=== PATIENT | male | born 1945 | race Caucasian/White ===

== ENCOUNTER 2023-11-15 10:59 | Outpatient (AMB) | payer MEDICARE, OTHER, SELFPAY ==
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
[2023-11-15 11:19] VITALS: BP 112/64; PULSE 79; RESP 12; O2SAT 98; BMI 31.0
== END 2023-11-15 12:01 | disposition home or self-care (01) ==
PROVIDERS: Visit Provider Internal Medicine
DX: I10 Essential (primary) hypertension (principal); E11.39 Type 2 diabetes mellitus with other diabetic ophthalmic complication; E85.4 Organ-limited amyloidosis; I43 Cardiomyopathy in diseases classified elsewhere; Z87.828 Personal history of other (healed) physical injury and trauma
CPT/HCPCS: 99215; G2211

== ENCOUNTER 2024-01-27 14:42 | Outpatient (AMB) | payer MEDICARE, OTHER, SELFPAY ==
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
[2024-01-27 14:52] VITALS: BP 116/58; PULSE 78; RESP 13; O2SAT 98; BMI 29.9
== END 2024-01-27 15:21 | disposition home or self-care (01) ==
LOC: HO.HMGFM 14:42
PROVIDERS: Visit Provider Internal Medicine
DX: M54.16 Radiculopathy, lumbar region (principal)
CPT/HCPCS: 99214

== ENCOUNTER 2024-04-11 14:32 | Outpatient (REF) | payer MEDICARE, OTHER, SELFPAY | END 2024-04-11 14:33 | disposition home or self-care (01) | LOC: CF 14:32 | DX: Z13.89 Encounter for screening for other disorder (principal) ==

== ENCOUNTER → 2024-04-25 07:38 | Outpatient (BNV) | payer MEDICARE, OTHER, SELFPAY | PROVIDERS: PCP Internal Medicine; Visit Provider Radiology Diagnostic Radiology | DX: M48.062 Spinal stenosis, lumbar region with neurogenic claudication (principal); M51.46 Schmorl's nodes, lumbar region; M99.63 Osseous and subluxation stenosis of intervertebral foramina of lumbar region; Q76.49 Other congenital malformations of spine, not associated with scoliosis; M47.897 Other spondylosis, lumbosacral region | CPT/HCPCS: 72148 ==

== ENCOUNTER 2024-04-25 07:58 | Outpatient (REF) | payer MEDICARE, OTHER, SELFPAY | END 2024-04-25 07:59 | disposition home or self-care (01) | LOC: HO.MRI 07:58 | PROVIDERS: PCP Internal Medicine; Visit Provider Internal Medicine | DX: M54.40 Lumbago with sciatica, unspecified side (principal); M54.16 Radiculopathy, lumbar region | CPT/HCPCS: 72148 ==

== ENCOUNTER 2024-05-21 08:38 | Outpatient (AMB) | payer MEDICARE, OTHER, SELFPAY ==
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
[2024-05-21 08:45] VITALS: BP 130/76; PULSE 85; O2SAT 99; BMI 30.6
== END 2024-05-21 09:33 | disposition home or self-care (01) ==
PROVIDERS: PCP Internal Medicine; Visit Provider Internal Medicine
DX: Z00.00 Encounter for general adult medical examination without abnormal findings (principal); E11.39 Type 2 diabetes mellitus with other diabetic ophthalmic complication

== ENCOUNTER → 2024-05-21 08:38 | Outpatient (BNVA) | payer MEDICARE, OTHER, SELFPAY | PROVIDERS: Visit Provider Internal Medicine | DX: Z00.00 Encounter for general adult medical examination without abnormal findings (principal); E11.39 Type 2 diabetes mellitus with other diabetic ophthalmic complication; I10 Essential (primary) hypertension; I25.10 Atherosclerotic heart disease of native coronary artery without angina pectoris; M25.50 Pain in unspecified joint; I25.2 Old myocardial infarction; Z79.84 Long term (current) use of oral hypoglycemic drugs; Z79.899 Other long term (current) drug therapy | CPT/HCPCS: 83036; 96127; 99212 ==

== ENCOUNTER 2024-10-27 16:06 | Emergency (ER) | payer MEDICARE, OTHER, SELFPAY ==
--- NOTE | ~2024-10-27 | XR_ITS ---
CLINICAL HISTORY: SOB 2 view chest x-ray Comparison: None Findings: Heart size normal. No acute fracture. Impression: The lungs are clear. This document has been electronically signed by: Armani Denny MD on 10/27/2024 17:21:01
--- NOTE | 2024-10-27 16:08 | ED.GENADULT ---
HPI - General Adult General Chief complaint: Upper Respiratory Symptoms Stated complaint: cough Time Seen by Provider: 10/27/24 17:10 Source: patient, RN notes reviewed and old records reviewed Mode of arrival: ambulatory History of Present Illness ED Provider: Sruthi Cole PA-C HPI narrative: 79-year-old male with a past medical history diabetes, Amyloidosis, HTN, presenting to the ED complaining of productive cough of white/yellow phlegm x3 weeks. Admits was seen at urgent care 3 days ago had negative x-ray was not given any prescriptions. Denies fever, chills, CP, SOB, pedal edema, recent travel, sick contacts Related Data Home Medications ?Medication ?Instructions ?Recorded ?Confirmed aspirin 81 mg tablet,delayed 81 mg PO DAILY 11/15/23 11/15/23 release atorvastatin 80 mg tablet 80 mg PO DAILY 11/15/23 11/15/23 cholecalciferol (vitamin D3) 10 10 mcg PO DAILY 11/15/23 11/15/23 mcg (400 unit) tablet clopidogrel 75 mg tablet 75 mg PO DAILY 11/15/23 11/15/23 cyanocobalamin (vitamin B-12) 1,000 mcg PO DAILY 11/15/23 11/15/23 1,000 mcg capsule diclofenac sodium 1 % topical gel 2 g topical QID 11/15/23 11/15/23 (Aleve (diclofenac)) docusate sodium 100 mg capsule 100 mg PO DAILY 11/15/23 11/15/23 empagliflozin 25 mg tablet 25 mg PO DAILY 11/15/23 11/15/23 (Jardiance) ezetimibe 10 mg tablet 10 mg PO DAILY 11/15/23 11/15/23 folic acid 1 mg tablet 1 mg PO DAILY 11/15/23 11/15/23 glipizide 5 mg tablet 5 mg PO BID 11/15/23 11/15/23 isosorbide mononitrate 60 mg 90 mg PO DAILY 11/15/23 11/15/23 tablet,extended release 24 hr metformin 1,000 mg tablet 1,000 mg PO BID 11/15/23 11/15/23 metoprolol succinate 50 mg 50 mg PO BID 11/15/23 11/15/23 tablet,extended release 24 hr ranolazine 500 mg tablet,extended 750 mg PO BID 11/15/23 11/15/23 release,12 hr spironolactone 25 mg tablet 25 mg PO DAILY 11/15/23 11/15/23 tafamidis 61 mg capsule (Vyndamax) 61 mg PO DAILY 11/15/23 11/15/23 Previous Rx's ?Medication ?Instructions ?Recorded baclofen 10 mg tablet See Rx Instructions PO .COMPLEX 03/15/24 PRN back aric 90 days #270 tabs benzonatate 100 mg capsule 100 mg PO TID PRN cough #14 caps 10/27/24 hydrocodone-homatropine 5 mg-1.5 5 ml PO Q6H PRN cough #50 mL 10/27/24 mg/5 mL (5 mL) oral solution (Hycodan) prednisone 20 mg tablet 40 mg (2 x 20 mg) PO DAILY 4 days 10/27/24 #8 tabs Allergies Allergy/AdvReac Type Severity Reaction Status Date / Time morphine AdvReac Severe Hallucinati Verified 10/27/24 16:12 ons Review of Systems Review of Systems: Yes all other systems are reviewed and are negative Constitutional: Constitutional: Reports as per [facility] Past Medical History Attestation statement: The following information was validated with the patient. Source: old records reviewed Social History Social History Housing: House Alcohol intake: never Patient Tobacco Use Status: Never used Tobacco Smoked in Last 30 Days: No e-Cigarette/Vaping Use: Never Used Second Hand Smoke Exposure: No Use of substances other than those prescribed or required for medical reasons: No Advance Directives: No Advance Directives Information Provided: Yes service: Yes Current occupational status: retired Current occupational exposures/hazards: No Cognitive needs: No Hearing needs: Yes Vision needs: Yes Physical Exam ED Vital Signs: Vital Signs - 24 hr 10/27/24 16:09 Temperature 97.5 F Pulse Rate 79 Respiratory Rate 18 Blood Pressure 128/75 Pulse Oximetry 98 Oxygen Delivery Method Room Air BMI result Body Mass Index 27.5 Const General: cooperative, healthy appearing and no acute distress Orientation/consciousness: patient oriented x3 Limitations: no limitations HENMT Head: Yes normal to inspection and Yes atraumatic Ears: hearing grossly normal bilaterally General nose exam: Normal external nose present Face and sinus: Yes normal facial exam Mouth: Normal oral and palatal mucosa present and no drooling Throat: Yes posterior oropharynx normal, Yes tonsils normal, Yes uvula midline, No peritonsillar mass, No uvula laterally displaced and No uvular edema Eyes General: appearance normal, both eyes and all related structures EOM: EOMs intact bilaterally Neck Neck: Yes normal visual inspection and Yes no meningeal signs Resp Effort & Inspection: normal respiratory effort and no respiratory distress Auscultation: clear to auscultation bilaterally, no crackles, no rales and no wheezes Cardio Rate: regular rate Heart sounds: S1 normal heart sound present and S2 normal heart sound present GI Inspection: Yes normal to inspection Palpation (GI): Soft to palpation, nontender, no guarding and not rigid Skin Rashes: no rashes Wounds: no wounds Neuro General: patient oriented x3, tone normal and no meningeal signs Cranial nerves: Yes CN's II-XII intact bilaterally Gait exam (Neuro): Normal gait present Extrem Other: 1+ bilateral LE pitting edema General: Yes normal to inspection Course Course Course Narrative: RME performed by Tia Rodriguez PA-C. Patient is a 79 year old assigned male at presenting to the emergency department with a cough. Patient states he has had a cough for weeks that is not getting better and is much more weak. Detailed physical exam and review of systems are deferred to the crisis clinician. EKG, labs, imaging, and swabs ordered. Patient placed back in the waiting room pending room availability and results. - labs reassuring. Initial troponin 28.7 > will obtain 3hr repeat - COVID/flu/ RSV negative XR chest 2V Impression: The lungs are clear. -1900-- ED care transferred to [facility] pending repeat troponin. Dispo per results 10/27/20241955 Tia Rodriguez PA-C Repeat trop negative for delta. Patient cleared for discharge. Medications Administered Discontinued Medications Generic Name Dose Route Start Last Admin Trade Name Freq PRN Reason Stop Dose Admin Albuterol Sulfate 4 puff 10/27/24 17:21 10/27/24 17:29 Albuterol Sulfate 90 Mcg 8 Gm Inhaler INHALE 10/27/24 17:22 4 puff ONCE ONE Administration Hydrocodone Bit/Homatropine Methylb 5 ml 10/27/24 17:21 10/27/24 17:29 Hydrocodone/Homat 5/1.5/5 Ml 5 Ml Syrup PO 10/27/24 17:22 5 ml ONCE ONE Administration Prednisone 40 mg 10/27/24 17:34 10/27/24 17:57 Prednisone 20 Mg Tablet PO 10/27/24 17:35 40 mg ONCE ONE Administration Medical Decision Making Medical Decision Making [facility] Narrative: 79-year-old male with a past medical history diabetes, Amyloidosis, HTN, presenting to the ED complaining of productive cough of white/yellow phlegm x3 weeks. on exam vital signs stable, NAD, nontoxic appearing, lungs CTA, 1+ bilateral LE pitting edema. Concern for viral illness vs pneumonia vs bronchitis. Lower suspicion for ACS or CHF or dissection Plan: EKG, labs, CXR, viral testing, albuterol inhaler, Hycodan cough syrup, Tessalon Perle, re-evaluate Please refer to course for remaining clinical decision making, interpretation of labs/imaging results, and discussions with consultants and/or family members. Differential Diagnosis Differential Diagnoses: The differential diagnosis associated with the presentation includes As above Admission/Observation Consideration of admission/observation: Escalation of care including admission/observation considered Lab Data [facility] Lab Attestation statement: I reviewed the patient's lab results. 10/27/24 16:28 10/27/24 16:28 Labs: Lab Results 10/27/24 10/27/24 Range/Units 16:28 19:27 WBC 7.4 (4.8-10.8) X10*3/uL RBC 4.61 (4.60-5.80) X10*6/uL Hgb 13.6 L (14.0-18.0) g/dl Hct 41.1 L (42.0-52.0) % MCV 89.2 (80.0-98.0) fL MCH 29.5 (27.0-33.0) pg MCHC 33.1 (31.0-36.0) g/dl RDW 14.3 (11.0-16.0) % Plt Count 175 (160-400) X10*3/uL MPV 9.9 (9.4-12.4) fL Immature Gran % (Auto) 0.5 H (0.0-0.4) % Neut % (Auto) 67.4 (45-73) % Lymph % (Auto) 15.4 L (20-40) % [place] % (Auto) 14.2 H (2-11) % Eos % (Auto) 2.0 (0-4) % Baso % (Auto) 0.5 (0-2) % Lymph # (Auto) 1.1 L (1.2-4.9) X10*3/uL [place] # (Auto) 1.1 (0.1-1.2) X10*3/uL Eos # (Auto) 0.2 (0.0-0.4) X10*3/uL Baso # (Auto) 0.0 (0.0-0.2) X10*3/uL Abs Immat Gran (auto) 0.04 H (0.00-0.03) X10*3/uL Absolute Neuts (auto) 5.0 (2.0-8.3) x10*3/uL Absolute Nucleated RBC 0.000 (0.0-0.012) X10*3/uL Nucleated RBC % (auto) 0.0 (0.0-0.2) /100WBC PT 10.7 L (10.9-12.4) SEC INR 0.9 (0.9-1.1) Sodium 139 (135-145) mmol/L Potassium 4.5 (3.3-5.1) mmol/L Chloride 105 (96-108) mmol/L Carbon Dioxide 22 (22-29) mmol/L Anion Gap 17 (12-20) BUN 28 H (9-16) mg/dL Creatinine 1.40 (0.5-1.4) mg/dL Estim Creat Clear Calc 42.7 Estimated GFR 49 Random Glucose 192 H (60-115) mg/dL Calcium 9.8 (8.4-10.2) mg/dL Magnesium 2.4 (1.6-2.6) mg/dL Total Bilirubin 0.7 (0.0-1.0) mg/dL AST 28 (5-37) U/L ALT 31 (0-40) U/L Alkaline Phosphatase 65 (39-117) U/L Troponin I High Sens 28.7 27.1 (<3.5-35.0) ng/L B-Natriuretic Peptide 106 H (<100) pg/mL Total Protein 6.8 (6.5-8.0) g/dL Albumin 4.3 (3.5-5.0) g/dL Influenza Type A (PCR) NEGATIVE (Negative) Influenza Type B (PCR) NEGATIVE (Negative) RSV RNA Qual (PCR) NEGATIVE (Negative) SARS-CoV-2 RNA (RT-PCR) NEGATIVE (Negative) Independent Interpretation I performed an independent interpretation of an: EKG ( my interpretation EKG sinus rhythm with first-degree AV block rate of 76. QRS 88. QTC 456. No previous to compare. No STEMI) and Plain X-Ray Radiology Impression Discussion of test interpretation with radiology: I have reviewed the radiologist's reading. Independent Historian Clinical information obtained from an independent historian. History obtained from or confirmed by: Spouse External Record Review External record reviewed: Inpatient record, Office record, Outpatient record, Prior outpatient labs, Prior outpatient radiology, Primary care record and Outside ED record Tests considered The following testing was considered but not selected: As above Prescription Management I considered prescription management with: Antibiotic and Other Chronic Conditions Patient?s care impacted by: Diabetes and Other Social Determinants Patient?s care significantly limited by Social Determinants of Health including: Other Social Determinant of Health Discharge Plan Discharge Clinical Impression: Bronchitis Instructions: Acute Bronchitis (ED) Additional Instructions: You have a virus. your blood work and chest x-ray are reassuring You tested negative for COVID, flu, RSV No antibiotics are indicated at this time Prednisone is a steroid please take as prescribed until completion. Hycodan is a cough syrup with an opiate, please only take when needed for severe cough, do not drive, drink alcohol or operate machinery while taking Tessalon Perles for cough as well, take as needed Make sure you are staying hydrated. Drink plenty of fluids. Rest Alternate Tylenol and Motrin at home as needed for body aches and fever Follow-up with your doctor. If symptoms persist or worsen return to the emergency department *If you are a child & not tolerating liquid or urinating for more than 6 hours, or fevers are uncontrolled with medications at home, return to the emergency department* Prescriptions: New prednisone 20 mg tablet 40 mg PO DAILY 4 Days Qty: 8 0RF benzonatate 100 mg capsule 100 mg PO TID PRN (Reason: cough) Qty: 14 0RF hydrocodone-homatropine [Hycodan] 5-1.5 mg/5 mL (5 mL) solution 5 ml PO Q6H PRN (Reason: cough) Qty: 50 0RF Rx Instructions: Partial Fill upon patient request. No Action baclofen 10 mg tablet See Rx Instructions PO .COMPLEX PRN (Reason: back aric) 90 Days Qty: 270 3RF Rx Instructions: Take 1 tab orally PRN; Take 1 tab oral in am and 2 tab oral before bed as needed for back pain aspirin 81 mg tablet,delayed release (DR/EC) 81 mg PO DAILY atorvastatin 80 mg tablet 80 mg PO DAILY cholecalciferol (vitamin D3) 10 mcg (400 unit) tablet 10 mcg PO DAILY clopidogrel 75 mg tablet 75 mg PO DAILY cyanocobalamin (vitamin B-12) 1,000 mcg capsule 1,000 mcg PO DAILY diclofenac sodium [Aleve (diclofenac)] 1 % gel 2 g topical QID Rx Instructions: apply to single elbow, wrist or hand; for hand includes palm/fingers/back of hand docusate sodium 100 mg capsule 100 mg PO DAILY ezetimibe 10 mg tablet 10 mg PO DAILY folic acid 1 mg tablet 1 mg PO DAILY glipizide 5 mg tablet 5 mg PO BID isosorbide mononitrate 60 mg tablet extended release 24 hr 90 mg PO DAILY Jardiance 25 mg tablet 25 mg PO DAILY metformin 1,000 mg tablet 1,000 mg PO BID metoprolol succinate 50 mg tablet extended release 24 hr 50 mg PO BID ranolazine 500 mg tablet extended release 12 hr 750 mg PO BID Vyndamax 61 mg capsule 61 mg PO DAILY spironolactone 25 mg tablet 25 mg PO DAILY Referrals: Yessenia Rodriguez MD [Primary Care Provider] - 5 days Print Language: Malawian
[2024-10-27 16:09] VITALS: BP 128/75; PULSE 79; RESP 18; TEMP 36.4; O2SAT 98; BMI 27.5
--- NOTE | 2024-10-27 16:10 | ECG_ITS ---
Test Reason : SOB Blood Pressure : */* mmHG Vent. Rate : 76 BPM Atrial Rate : 76 BPM P-R Int : 222 ms QRS Dur : 88 ms QT Int : 406 ms P-R-T Axes : 65 -36 79 degrees QTcB Int : 456 ms Sinus rhythm with 1st degree A-V block Left axis deviation Inferior infarct , age undetermined Abnormal ECG No previous ECGs available Referred By: Tia Rodriguez Electronically Signed By: NAYANA MARQUEZ MD
[2024-10-27 16:36] LABS: MANUAL DIFF FLAG NO
[2024-10-27 16:37] LABS: Basophils Percent Auto 0.5 % (0-2); Eosinophils Absolute Auto 0.2 X10*3/uL (0.0-0.4); Hematocrit 41.1 % (42.0-52.0); Hemoglobin 13.6 g/dl (14.0-18.0); Imm Gran Abs Auto 0.04 X10*3/uL (0.00-0.03); Imm Gran Pct Auto 0.5 % (0.0-0.4); Lymphocytes Absolute Auto 1.1 X10*3/uL (1.2-4.9); Lymphocytes Percent Auto 15.4 % (20-40); Mean Corpuscular HGB Conc 33.1 g/dl (31.0-36.0); Mean Corpuscular Hemoglobin 29.5 pg (27.0-33.0); Mean Corpuscular Volume 89.2 fL (80.0-98.0); Mean Platelet Volume 9.9 fL (9.4-12.4); Monocytes Absolute Auto 1.1 X10*3/uL (0.1-1.2); Monocytes Percent Auto 14.2 % (2-11); Neutrophils Percent Auto 67.4 % (45-73); Platelet Count 175 X10*3/uL (160-400); Red Blood Count 4.61 X10*6/uL (4.60-5.80); Red Cell Distribution Width 14.3 % (11.0-16.0); White Blood Count 7.4 X10*3/uL (4.8-10.8)
[2024-10-27 16:42] LABS: INTERNATIONAL NORM RATIO 0.9 (0.9-1.1); Prothrombin Time 10.7 SEC (10.9-12.4)
[2024-10-27 16:50] LABS: Alanine Aminotransferase 31 U/L (0-40); Albumin Level 4.3 g/dL (3.5-5.0); Alkaline Phosphatase 65 U/L (39-117); Anion Gap 17 (12-20); Aspartate Amino Transferase 28 U/L (5-37); Bilirubin Total 0.7 mg/dL (0.0-1.0); Blood Urea Nitrogen 28 mg/dL (9-16); Calcium 9.8 mg/dL (8.4-10.2); Carbon Dioxide 22 mmol/L (22-29); Chloride 105 mmol/L (96-108); Creatinine Clr Calc Pharmacy 42.7; Estimated Glomerular Filt Rate 49; Glucose Random 192 mg/dL (60-115); Magnesium 2.4 mg/dL (1.6-2.6); Potassium 4.5 mmol/L (3.3-5.1); Sodium 139 mmol/L (135-145); Total Protein 6.8 g/dL (6.5-8.0)
[2024-10-27 16:57] LABS: Troponin-I High Sensitivity 28.7 ng/L (<3.5-35.0)
[2024-10-27 17:12] LABS: Influenza A PCR NEGATIVE (Negative); Influenza B PCR NEGATIVE (Negative); Resp Syncy Virus RNA Qual PCR NEGATIVE (Negative); SARS COV2 PCR INHOUSE NEGATIVE (Negative)
[2024-10-27] MEDS: Albuterol Sulfate 90 MCG 8 GM INHALER 4 PUFF INHALE (17:29)
[2024-10-27] MEDS: HYDROcodone/Homat 5/1.5/5 ML 5 ML SYRUP PO (17:29)
[2024-10-27] MEDS: predniSONE 20 MG TABLET 40 MG PO (17:57)
[2024-10-27 18:35] LABS: B Type Natriuretic Peptide 106 pg/mL (<100)
[2024-10-27 19:54] LABS: Troponin-I High Sensitivity 27.1 ng/L (<3.5-35.0)
[2024-10-27 20:13] VITALS: BP 128/75; PULSE 79; RESP 18; TEMP 36.4; O2SAT 98
== END 2024-10-27 20:13 | disposition home or self-care (01) ==
PROVIDERS: Physician Assistant; Physician Assistant Medical; Emergency Provider Internal Medicine; PCP Internal Medicine
DX: J40 Bronchitis, not specified as acute or chronic (principal); R05.9 Cough, unspecified; R06.02 Shortness of breath; Z03.818 Encounter for observation for suspected exposure to other biological agents ruled out; E11.9 Type 2 diabetes mellitus without complications; I10 Essential (primary) hypertension; E85.4 Organ-limited amyloidosis; Z79.82 Long term (current) use of aspirin; Z79.02 Long term (current) use of antithrombotics/antiplatelets; Z79.899 Other long term (current) drug therapy; Z79.84 Long term (current) use of oral hypoglycemic drugs
CPT/HCPCS: 0241U; 36415; 71046; 80053; 83735; 83880; 84484; 85025; 85610; 93005; 99284; 99285

== ENCOUNTER → 2024-10-27 16:10 | Outpatient (BNV) | payer MEDICARE, OTHER, SELFPAY | PROVIDERS: Emergency Provider Internal Medicine; PCP Internal Medicine; Visit Provider Internal Medicine Cardiovascular Disease | DX: I44.0 Atrioventricular block, first degree (principal) | CPT/HCPCS: 93010 ==

== ENCOUNTER → 2024-10-27 16:10 | Outpatient (BNV) | payer MEDICARE, OTHER, SELFPAY | PROVIDERS: Emergency Provider Internal Medicine; PCP Internal Medicine; Visit Provider Radiology Diagnostic Radiology | DX: R06.02 Shortness of breath (principal) | CPT/HCPCS: 71046 ==

== ENCOUNTER 2024-11-04 14:44 | Emergency (ER) | payer MEDICARE, OTHER, SELFPAY ==
--- NOTE | ~2024-11-04 | XR_ITS ---
CLINICAL HISTORY: sob, cough Chest X-ray, 2 Views COMPARISON: CR - XR CHEST 2V - 10/27/24 16:43 EDT FINDINGS: No consolidation. No pleural effusion. No pneumothorax. No cardiomegaly. No acute fracture. Status post left shoulder arthroplasty. Chronic mid to lower thoracic compression fractures. Degenerative changes in the spine. IMPRESSION: No acute findings. Nonemergent/incidental findings above. This document has been electronically signed by: Vazquez Copeland MD on 11/04/2024 16:01:01
--- NOTE | ~2024-11-04 | CT_ITS ---
CLINICAL HISTORY: productive cough, SOB x1mo CT Chest W Contrast COMPARISON: CR - XR CHEST 2V - 11/04/24 15:15 EDT FINDINGS: No pulmonary consolidation or mass. No pleural effusion. No pneumothorax. No cardiomegaly. No pericardial effusion. No pathologically enlarged lymph nodes. No thoracic aortic aneurysm. No acute fracture. Status post left shoulder arthroplasty. Anterior cervical fusion hardware in place. Degenerative changes in the spine and right shoulder. Cholelithiasis. Elevation of the right hemidiaphragm. IMPRESSION: No acute findings. Nonemergent/incidental findings above. This document has been electronically signed by: Vazquez Copeland MD on 11/04/2024 19:40:53
--- NOTE | 2024-11-04 14:46 | ED.URI ---
HPI - URI/Sore Throat General Chief Complaint: Upper Respiratory Symptoms Stated Complaint: cough Time Seen by Provider: 11/04/24 16:34 Source: patient Mode of arrival: ambulatory Limitations: no limitations History of Present Illness ED Provider: mary jane sanchez np HPI Narrative: Patient is a 79-year-old male with past medical history of diabetes, amyloidosis, hypertension presenting to emergency department for evaluation. Over the past month he has been experiencing shortness of breath, productive cough with yellow and left anterior chest pain. Was seen in the emergency department approximately 1 week ago for similar symptoms at that time states he was diagnosed with bronchitis he was given a prescription for prednisone, Tessalon Perles as well as Hycodan without much improvement. His present at bedside feels as though his symptoms have only worsened. Denies fevers, chills, headache, dizziness, neck pain, neck stiffness, sore throat, nausea, vomiting, abdominal pain, numbness or tingling of the extremities, genitourinary symptoms. Related Data Home Medications ?Medication ?Instructions ?Recorded ?Confirmed aspirin 81 mg tablet,delayed 81 mg PO DAILY 11/15/23 11/15/23 release atorvastatin 80 mg tablet 80 mg PO DAILY 11/15/23 11/15/23 cholecalciferol (vitamin D3) 10 10 mcg PO DAILY 11/15/23 11/15/23 mcg (400 unit) tablet clopidogrel 75 mg tablet 75 mg PO DAILY 11/15/23 11/15/23 cyanocobalamin (vitamin B-12) 1,000 mcg PO DAILY 11/15/23 11/15/23 1,000 mcg capsule diclofenac sodium 1 % topical gel 2 g topical QID 11/15/23 11/15/23 (Aleve (diclofenac)) docusate sodium 100 mg capsule 100 mg PO DAILY 11/15/23 11/15/23 empagliflozin 25 mg tablet 25 mg PO DAILY 11/15/23 11/15/23 (Jardiance) ezetimibe 10 mg tablet 10 mg PO DAILY 11/15/23 11/15/23 folic acid 1 mg tablet 1 mg PO DAILY 11/15/23 11/15/23 glipizide 5 mg tablet 5 mg PO BID 11/15/23 11/15/23 isosorbide mononitrate 60 mg 90 mg PO DAILY 06/18/24 06/18/24 tablet,extended release 24 hr metformin 1,000 mg tablet 1,000 mg PO BID 11/15/23 11/15/23 metoprolol succinate 50 mg 50 mg PO BID 11/15/23 11/15/23 tablet,extended release 24 hr ranolazine 500 mg tablet,extended 750 mg PO BID 11/15/23 11/15/23 release,12 hr spironolactone 25 mg tablet 25 mg PO DAILY 11/15/23 11/15/23 tafamidis 61 mg capsule (Vyndamax) 61 mg PO DAILY 11/15/23 11/15/23 Previous Rx's ?Medication ?Instructions ?Recorded baclofen 10 mg tablet See Rx Instructions PO .COMPLEX 03/15/24 PRN back aric 90 days #270 tabs benzonatate 100 mg capsule 100 mg PO TID PRN cough #14 caps 10/27/24 hydrocodone-homatropine 5 mg-1.5 5 ml PO Q6H PRN cough #50 mL 10/27/24 mg/5 mL (5 mL) oral solution (Hycodan) prednisone 20 mg tablet 40 mg (2 x 20 mg) PO DAILY 4 days 10/27/24 #8 tabs apixaban 5 mg tablet (Eliquis) 5 mg PO BID #60 tabs 11/04/24 azithromycin 250 mg tablet See Rx Instructions PO .COMPLEX #6 11/04/24 tabs Allergies Allergy/AdvReac Type Severity Reaction Status Date / Time morphine AdvReac Severe Hallucinati Verified 11/04/24 14:51 ons Review of Systems Review of Systems: Yes all other systems are reviewed and are negative PMFSH Past Medical History Attestation statement: The following information was validated with the patient. Source: old records reviewed Social History Social History Housing: House Alcohol intake: never Patient Tobacco Use Status: Never used Tobacco Smoked in Last 30 Days: No e-Cigarette/Vaping Use: Never Used Second Hand Smoke Exposure: No Use of substances other than those prescribed or required for medical reasons: No Advance Directives: No Advance Directives Information Provided: Yes Do you have a plan to hurt others: No Plan service: Yes Current occupational status: retired Current occupational exposures/hazards: No Cognitive needs: No Hearing needs: Yes Vision needs: Yes Physical Exam Vital Signs: Vital Signs: Last Vital Signs Temp 96.8 F 11/04/24 21:19 Pulse 83 11/04/24 21:19 Resp 13 11/04/24 21:19 BP 134/68 11/04/24 21:19 Pulse Ox 98 11/04/24 21:19 O2 Del Method Room Air 11/04/24 21:19 BMI result Body Mass Index 26.7 Appearance: Alert.?Oriented to person, place and time. No acute distress.?Normal affect. Eyes: Pupils equal, round and reactive to light.? ENT: TM normal bilaterally. Pharynx normal.?? Neck: Normal inspection.? Neck supple.??No cervical adenopathy CVS: Heart sounds normal. Normal heart rate and rhythm.? Pulses normal.?? Respiratory: No respiratory distress.? Lung sounds with rhonchi bilaterally, diminished at the bases Abdomen: Soft and non-tender. Normoactive bowel sounds. Skin: Skin warm and dry.? Normal skin color.? ? Extremities: No lower extremity edema.? Neuro: Moves all extremities spontaneously. Sensation intact bilaterally. No motor deficits. Ambulates with normal steady gait. Course Course Course Narrative: This is a Rapid Medical Exam performed in triage by Sruthi Cole PA-C. Full HPI, ROS and PE to be performed by primary ED provider. 79-year-old male with a past medical history diabetes, Amyloidosis, HTN, presenting to the ED complaining of continued SOB & cough w/left sided CP - was evaluated in our ED on 10/27/24 for similar sx & dx w/Bronchits - Rx Prednisone & cough medication which he took without relief. PE: talking in complete sentences, satting 98% on RA Plan: EKG, labs, CXR, SARs Medications Administered Discontinued Medications Generic Name Dose Route Start Last Admin Trade Name Freq PRN Reason Stop Dose Admin Apixaban 5 mg 11/04/24 21:17 11/04/24 21:40 Apixaban 5 Mg Tablet PO 11/04/24 21:18 5 mg ONCE ONE Administration Sodium Chloride 1,000 mls @ 999 mls/hr 11/04/24 19:15 11/04/24 20:54 Ns IV 11/04/24 20:15 Infused .Q1H1M KAYLEIGH Infusion Iohexol 65 ml 11/04/24 19:23 11/04/24 19:24 Iohexol 350 Mg/Ml 100 Ml Infus..Btl IV 11/04/24 19:24 65 ml ONCE ONE Administration Medical Decision Making Medical Decision Making [facility] Narrative: Patient is a 79-year-old male with past medical history of diabetes, amyloidosis, hypertension presenting to emergency department for evaluation of productive cough shortness of breath and chest pain as per HPI. He was seen 10/27/2024 diagnosed with bronchitis as per HPI he was given prednisone, Hycodan, and Tessalon which by his account he did not notice any improvement from, feels as though he has only worsened. Today he had serum labs and chest x-ray in addition to ECG prior to my assumption of care; CBC is without leukocytosis, no significant anemia or thrombocytopenia. No significant electrolyte derangement. No LASHAWN. LFTs unremarkable. Initially high sensitive troponin was elevated at 45 delta trop of 46 EKG without acute ischemic changes, reveals atrial fibrillation with ventricular rate of 92, QTC 467, no ST-elevation, patient to be new onset atrial fibrillation, CHADs VASC score of 4 for which he would be a candidate for initiating anticoagulant, such a DOAC. Chest CT without acute pathology no evidence of pleural effusion consolidation pneumothorax. Concerning for a bacterial bronchitis given the duration of symptoms, he has already taken prednisone and antitussives without improvement, begin a course of azithromycin. Patient reports that he is currently taking Plavix after having a stent 2-3 years ago, I will consult with Cardiology to ascertain whether he should discontinue the Plavix or take this simultaneously with the Eliquis. Dr. Lala advises initiating Eliquis, he may remain on the Plavix until outpatient follow-up with his director foundation. Patient has been given strict return precautions. All questions answered. Differential Diagnosis Differential Diagnoses: The differential diagnosis associated with the presentation includes ( See narrative above) Admission/Observation Consideration of admission/observation: Escalation of care including admission/observation considered ( see narrative above) Lab Data MDM Lab Attestation statement: I reviewed the patient's lab results. ( see narrative above) 11/04/24 15:04 11/04/24 15:04 Labs: Lab Results 11/04/24 11/04/24 Range/Units 15:04 17:53 WBC 7.7 (4.8-10.8) X10*3/uL RBC 4.80 (4.60-5.80) X10*6/uL Hgb 13.9 L (14.0-18.0) g/dl Hct 43.5 (42.0-52.0) % MCV 90.6 (80.0-98.0) fL MCH 29.0 (27.0-33.0) pg MCHC 32.0 (31.0-36.0) g/dl RDW 14.2 (11.0-16.0) % Plt Count 197 (160-400) X10*3/uL MPV 9.9 (9.4-12.4) fL Immature Gran % (Auto) 1.2 H (0.0-0.4) % Neut % (Auto) 73.2 H (45-73) % Lymph % (Auto) 15.3 L (20-40) % [place]ell % (Auto) 8.3 (2-11) % Eos % (Auto) 1.6 (0-4) % Baso % (Auto) 0.4 (0-2) % Lymph # (Auto) 1.2 (1.2-4.9) X10*3/uL [place]ell # (Auto) 0.6 (0.1-1.2) X10*3/uL Eos # (Auto) 0.1 (0.0-0.4) X10*3/uL Baso # (Auto) 0.0 (0.0-0.2) X10*3/uL Abs Immat Gran (auto) 0.09 H (0.00-0.03) X10*3/uL Absolute Neuts (auto) 5.6 (2.0-8.3) x10*3/uL Absolute Nucleated RBC 0.000 (0.0-0.012) X10*3/uL Nucleated RBC % (auto) 0.0 (0.0-0.2) /100WBC PT 10.6 L (10.9-12.4) SEC INR 0.9 (0.9-1.1) APTT 32.2 (26.0-36.8) SEC D-Dimer High Sensitivty 154 NG/ML Sodium 140 (135-145) mmol/L Potassium 5.1 (3.3-5.1) mmol/L Chloride 107 (96-108) mmol/L Carbon Dioxide 21 L (22-29) mmol/L Anion Gap 17 (12-20) BUN 23 H (9-16) mg/dL Creatinine 1.15 (0.5-1.4) mg/dL Estim Creat Clear Calc 52.0 Estimated GFR > 60 Random Glucose 207 H (60-115) mg/dL Calcium 9.9 (8.4-10.2) mg/dL Magnesium 2.3 (1.6-2.6) mg/dL Total Bilirubin 0.7 (0.0-1.0) mg/dL Direct Bilirubin 0.3 (0.0-0.5) mg/dL AST 24 (5-37) U/L ALT 36 (0-40) U/L Alkaline Phosphatase 57 (39-117) U/L Troponin I High Sens 45.0 H D 46.0 H (<3.5-35.0) ng/L B-Natriuretic Peptide 294 H (<100) pg/mL Total Protein 6.3 L (6.5-8.0) g/dL Albumin 4.1 (3.5-5.0) g/dL Influenza Type A (PCR) NEGATIVE (Negative) Influenza Type B (PCR) NEGATIVE (Negative) RSV RNA Qual (PCR) NEGATIVE (Negative) SARS-CoV-2 RNA (RT-PCR) NEGATIVE (Negative) Independent Interpretation I performed an independent interpretation of an: Plain X-Ray (See narrative above) Radiology Impression Discussion of test interpretation with radiology: I have reviewed the radiologist's reading. Radiologist Impression: Chest X-ray, 2 Views COMPARISON: CR - XR CHEST 2V - 10/27/24 16:43 EDT FINDINGS: No consolidation. No pleural effusion. No pneumothorax. No cardiomegaly. No acute fracture. Status post left shoulder arthroplasty. Chronic mid to lower thoracic compression fractures. Degenerative changes in the spine. IMPRESSION: No acute findings. Nonemergent/incidental findings above. CT Chest W Contrast COMPARISON: CR - XR CHEST V - 11/04/24 15:15 EDT FINDINGS: No pulmonary consolidation or mass. No pleural effusion. No pneumothorax. No cardiomegaly. No pericardial effusion. No pathologically enlarged lymph nodes. No thoracic aortic aneurysm. No acute fracture. Status post left shoulder arthroplasty. Anterior cervical fusion hardware in place. Degenerative changes in the spine and right shoulder. Cholelithiasis. Elevation of the right hemidiaphragm. IMPRESSION: No acute findings. Nonemergent/incidental findings above. Prescription Management I considered prescription management with: Pain Medication ( acetaminophen/ibuprofen) Critical Care Time Critical Care Time Critical Care Time: Yes Total Critical Care Time: 35 Attestation: I personally attest to this critical care time spent taking care of the patient exclusive of all other billable procedures was approximately 35 minutes including initial evaluation of patient, ordering tests, x-ray interpretation, EKG interpretation, medical consultation with cardiology initiating anticoagulant, documentation, re-evaluation. Discharge Plan Discharge Clinical Impression: Atrial fibrillation, Bronchitis Patient Disposition: Home, Self-Care Instructions: A-fib (Atrial Fibrillation) (ED), Acute Bronchitis (ED), Blood Thinners (ED) Additional Instructions: Aeration today was found to have new onset of atrial fibrillation and abnormal heart rhythm. For this you are being started on a medication called Eliquis, this is a blood thinning medication. I have spoken with our director foundation, given your history of stent you will remains taking the Plavix as well as the Eliquis Please contact your director foundation's office first thing tomorrow morning to arrange for a follow-up visit make them aware of the new AFib. It is imperative that with any fall or head injury you seek immediate care and an emergency department while taking the Eliquis as you are increased risk for bleeding including into the brain which can be life-threatening. If you sustaining any wounds or lacerations you may find that you have a more difficult time for the bleeding to stop. Given your ongoing productive cough over the past month, I suspect that you likely have a bacterial bronchitis at this point, there is no evidence of pneumonia on your imaging. I am sending a prescription for azithromycin to your pharmacy. Please follow-up with your primary care doctor with persistent symptoms. Prescriptions: New Eliquis 5 mg tablet 5 mg PO BID Qty: 60 0RF azithromycin 250 mg tablet See Rx Instructions .ROUTE .COMPLEX Qty: 6 0RF Rx Instructions: For 250 mg dose pack: take 500 mg today (day 1), then 250 mg for 4 days (days 2-5) No Action baclofen 10 mg tablet See Rx Instructions PO .COMPLEX PRN (Reason: back aric) 90 Days Qty: 270 3RF Rx Instructions: Take 1 tab orally PRN; Take 1 tab oral in am and 2 tab oral before bed as needed for back pain prednisone 20 mg tablet 40 mg PO DAILY 4 Days Qty: 8 0RF benzonatate 100 mg capsule 100 mg PO TID PRN (Reason: cough) Qty: 14 0RF hydrocodone-homatropine [Hycodan] 5-1.5 mg/5 mL (5 mL) solution 5 ml PO Q6H PRN (Reason: cough) Qty: 50 0RF Rx Instructions: Partial Fill upon patient request. aspirin 81 mg tablet,delayed release (DR/EC) 81 mg PO DAILY atorvastatin 80 mg tablet 80 mg PO DAILY cholecalciferol (vitamin D3) 10 mcg (400 unit) tablet 10 mcg PO DAILY clopidogrel 75 mg tablet 75 mg PO DAILY cyanocobalamin (vitamin B-12) 1,000 mcg capsule 1,000 mcg PO DAILY diclofenac sodium [Aleve (diclofenac)] 1 % gel 2 g topical QID Rx Instructions: apply to single elbow, wrist or hand; for hand includes palm/fingers/back of hand docusate sodium 100 mg capsule 100 mg PO DAILY ezetimibe 10 mg tablet 10 mg PO DAILY folic acid 1 mg tablet 1 mg PO DAILY glipizide 5 mg tablet 5 mg PO BID isosorbide mononitrate 60 mg tablet extended release 24 hr 90 mg PO DAILY Jardiance 25 mg tablet 25 mg PO DAILY metformin 1,000 mg tablet 1,000 mg PO BID metoprolol succinate 50 mg tablet extended release 24 hr 50 mg PO BID ranolazine 500 mg tablet extended release 12 hr 750 mg PO BID Vyndamax 61 mg capsule 61 mg PO DAILY spironolactone 25 mg tablet 25 mg PO DAILY Referrals: Yessenia Rodriguez MD [Primary Care Provider] - Interventions: ED Discharge Assessment Last Done: 11/04/24 21:19 Discharge Date/Time: 11/04/24 21:49 Print Language: Frisian
[2024-11-04 14:48] VITALS: BP 108/81; PULSE 104; RESP 22; TEMP 36.7; O2SAT 98; BMI 26.7
--- NOTE | 2024-11-04 14:50 | ECG_ITS ---
Test Reason : CP Blood Pressure : */* mmHG Vent. Rate : 92 BPM Atrial Rate : * BPM P-R Int : * ms QRS Dur : 94 ms QT Int : 378 ms P-R-T Axes : * -33 123 degrees QTcB Int : 467 ms Atrial fibrillation Left axis deviation Inferior infarct (cited on or before 27-Oct-2024) Cannot rule out Anterior infarct , age undetermined Abnormal ECG When compared with ECG of 27-Oct-2024 16:18, Atrial fibrillation has replaced Sinus rhythm Referred By: Sruthi Cole Electronically Signed By: NAYANA MARQUEZ MD
[2024-11-04 15:18] LABS: Basophils Percent Auto 0.4 % (0-2); Eosinophils Absolute Auto 0.1 X10*3/uL (0.0-0.4); Eosinophils Percent Auto 1.6 % (0-4); Hematocrit 43.5 % (42.0-52.0); Hemoglobin 13.9 g/dl (14.0-18.0); Imm Gran Abs Auto 0.09 X10*3/uL (0.00-0.03); Imm Gran Pct Auto 1.2 % (0.0-0.4); Lymphocytes Absolute Auto 1.2 X10*3/uL (1.2-4.9); Lymphocytes Percent Auto 15.3 % (20-40); MANUAL DIFF FLAG NO; Mean Corpuscular Volume 90.6 fL (80.0-98.0); Mean Platelet Volume 9.9 fL (9.4-12.4); Monocytes Absolute Auto 0.6 X10*3/uL (0.1-1.2); Monocytes Percent Auto 8.3 % (2-11); Neutrophils Absolute Auto 5.6 x10*3/uL (2.0-8.3); Neutrophils Percent Auto 73.2 % (45-73); Platelet Count 197 X10*3/uL (160-400); Red Cell Distribution Width 14.2 % (11.0-16.0); White Blood Count 7.7 X10*3/uL (4.8-10.8)
[2024-11-04 15:42] LABS: B Type Natriuretic Peptide 294 pg/mL (<100)
[2024-11-04 15:45] LABS: Alanine Aminotransferase 36 U/L (0-40); Albumin Level 4.1 g/dL (3.5-5.0); Anion Gap 17 (12-20); Aspartate Amino Transferase 24 U/L (5-37); Bilirubin Direct 0.3 mg/dL (0.0-0.5); Bilirubin Total 0.7 mg/dL (0.0-1.0); Blood Urea Nitrogen 23 mg/dL (9-16); Calcium 9.9 mg/dL (8.4-10.2); Carbon Dioxide 21 mmol/L (22-29); Chloride 107 mmol/L (96-108); Estimated Glomerular Filt Rate > 60; Glucose Random 207 mg/dL (60-115); Magnesium 2.3 mg/dL (1.6-2.6); Potassium 5.1 mmol/L (3.3-5.1); Sodium 140 mmol/L (135-145); Total Protein 6.3 g/dL (6.5-8.0)
[2024-11-04 16:30] VITALS: BP 105/70; PULSE 90; RESP 18; TEMP 36.7; O2SAT 98
[2024-11-04 16:50] VITALS: O2SAT 98
--- NOTE | 2024-11-04 16:51 | PC.NURSE ---
Patient A&O x 3. Patient presents to ED c/o SOB. Patient was [place] [facility] [place] with [place]. Patient completed prednisone and tessalon medication regimen with no relief. Patient 98% RA 13 RR patient able to speak in clear sentences but has coughing fits at times. at the bedside. PAtient on cnc supervisor NSR. Blood collected/sent to lab by triage. VSS and up to date.
[2024-11-04 17:01] LABS: Alkaline Phosphatase 57 U/L (39-117)
[2024-11-04 17:33] LABS: Influenza A PCR NEGATIVE (Negative); Influenza B PCR NEGATIVE (Negative); Resp Syncy Virus RNA Qual PCR NEGATIVE (Negative); SARS COV2 PCR INHOUSE NEGATIVE (Negative)
[2024-11-04 18:09] LABS: D Dimer High Sensitivity 154 NG/ML
[2024-11-04 18:42] VITALS: BP 117/63; PULSE 84; RESP 15; TEMP 36.4; O2SAT 99
[2024-11-04] MEDS: iohexoL 350 MG/ML 100 ML INFUS..BTL 65 ML IV (19:24)
[2024-11-04] MEDS: 0.9 % Sodium Chloride 1,000 ML 999 ML IV (19:41)
[2024-11-04 20:08] LABS: INTERNATIONAL NORM RATIO 0.9 (0.9-1.1); Prothrombin Time 10.6 SEC (10.9-12.4)
[2024-11-04 20:11] LABS: Partial Thromboplastin Time 32.2 SEC (26.0-36.8)
[2024-11-04 21:19] VITALS: BP 134/68; PULSE 83; RESP 13; TEMP 36; O2SAT 98
[2024-11-04] MEDS: Apixaban 5 MG TABLET PO (21:40)
--- NOTE | 2024-11-04 21:49 | PC.NURSE ---
ambulated steadily out of department with with no symptoms
== END 2024-11-04 21:49 | disposition home or self-care (01) ==
PROVIDERS: Nurse Practitioner Family; Physician Assistant; Emergency Provider Emergency Medicine; PCP Internal Medicine
DX: J40 Bronchitis, not specified as acute or chronic (principal); I48.91 Unspecified atrial fibrillation; R05.9 Cough, unspecified; Z03.818 Encounter for observation for suspected exposure to other biological agents ruled out; E11.9 Type 2 diabetes mellitus without complications; I10 Essential (primary) hypertension; R06.02 Shortness of breath; Z79.82 Long term (current) use of aspirin; Z79.02 Long term (current) use of antithrombotics/antiplatelets; Z79.84 Long term (current) use of oral hypoglycemic drugs; Z79.899 Other long term (current) drug therapy
CPT/HCPCS: 0241U; 36415; 71046; 71260; 80048; 80076; 83735; 83880; 84484; 85025; 85379; 85610; 85730; 93005; 96360; 99284; 99285; Q9967

== ENCOUNTER → 2024-11-04 14:50 | Outpatient (BNV) | payer MEDICARE, OTHER, SELFPAY | PROVIDERS: PCP Internal Medicine; Visit Provider Radiology Diagnostic Radiology | DX: K80.20 Calculus of gallbladder without cholecystitis without obstruction (principal); R05.9 Cough, unspecified | CPT/HCPCS: 71046; 71260 ==

== ENCOUNTER → 2024-11-04 14:50 | Outpatient (BNV) | payer MEDICARE, OTHER, SELFPAY | PROVIDERS: Emergency Provider Emergency Medicine; PCP Internal Medicine; Visit Provider Internal Medicine Cardiovascular Disease | DX: I48.91 Unspecified atrial fibrillation (principal); I25.2 Old myocardial infarction | CPT/HCPCS: 93010 ==

== ENCOUNTER 2024-12-17 13:31 | Outpatient (AMB) | payer MEDICARE, OTHER, SELFPAY ==
--- OUTSIDE RECORDS SUMMARY | 2024-12-14 06:23 | XMS_ITS | Continuity of Care Document ---
Author Name [facility] Organization [facility] Care Team Providers Care Bench Technician Name Role Phone [facility] Unavailable Unavailable Problems Combined list of problems from Department of Defense and [facility] facilities. It does not include entries that were removed or entered in error. Problem Status Onset Date Problem Type Date of Resolution Comments Source ERECTILE DYSFUNCTION Active 08/29/19 10 Condition [facility] Acquired claw foot (SNOMED CT 06273966) Active Condition [facility] Anesthesia for Total Ankle Replacement Active Condition Jul 27, 2007 Entered By: Donna CRYSTAL Comment: 2001 [facility] Benign localized hyperplasia of prostate Active Condition [facility] Callus/Corns Active Condition [facility] Cardiac amyloidosis Active Condition [facility] Carpal Tunnel Syndrome Active Condition [facility] Chest Pain NEC (ICD-9-CM 786.59) Active Condition [facility] Chronic post-traumatic stress disorder Active Condition [facility] Chronic post-traumatic stress disorder (SNOMED CT 507633176) Active Condition [facility] Complication of internal prosthetic device (SNOMED CT 00469589) Active Condition [facility] Coronary artery disease (SNOMED CT 80296360) Active Condition [facility] DJD * (ICD-9-CM 715.90) Active Condition [facility] Dysphonia (ICD-9-CM 784.42) Active Condition [facility] Elevated Prostate Specific Antigen (PSA) (ICD-9-CM 790.93) Active Condition [facility] Exposure to potentially hazardous substance [facility] FITTING AND ADJUSTMENT OF HEARING AID Active Condition [facility] Hammer Toe (ICD-9-CM 735.4) Active Condition [facility] Hammer toe (SNOMED CT 192607517) Active Condition [facility] Hip Joint replacement Status (Prosthetic or Artificial Device) Active Condition [facility] Hip Joint replacement Status (Prosthetic or Artificial Device) (ICD-9-CM V43.64) Active Condition Dec 28, 2004 Entered By: ARIANNE ANGUIANO Comment: 1989 [facility] Hyperlipidemia Active Condition [facility] Hyperlipidemia (SNOMED CT 63378557) Active Condition [facility] Hypertensive disorder Active Condition [facility] 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 Myogenic ptosis Active Condition [facility] Neck Pain ([facility] 17160296) Active Condition [facility] Obesity * (ICD-9-CM 278.00) Active Condition [facility] Obstructive Sleep Apnea of Adult ([facility] [id number]) Active Condition [facility] Occlus, Retin Branc Vein Active Condition Jan 21, 2012 Entered By: SHARI SAUNDERS Comment: Old OS [facility] Onychomycosis (SNOMED CT 476441244) Active Condition [facility] Osteoarthritis Active Condition [place] Other Dysphagia (ICD-9-CM 787.29) Active Condition [facility] Pain in joint involving shoulder region (ICD-9-CM 719.41) Active Condition [facility] Pain in limb (ICD-9-CM 729.5) Active Condition [facility] Paresthesia * (ICD-9-CM 782.0) Active Condition [facility] Pes cavus (SNOMED CT 53893203) Active Condition [facility] Rotator cuff (capsule) sprain or strain Active Condition Jul 27, 2007 Entered By: Donna CRYSTAL Comment: right repaired 05/05 [facility] SENSORINEURAL HEARING LOSS OF COMBINED TYPES Active Condition [facility] Spinal stenosis of lumbar region Active Condition [facility] SUBJECTIVE TINNITUS Active Condition [facility] Type 2 diabetes mellitus (SNOMED CT 22411358) Active Condition [facility] Vitamin D Deficiency ([facility] 40438436) Active Condition [facility] Diagnosis: ICD-10-CM G47.33 Obstructive sleep apnea (adult) (pediatric) Active Diagnosis [facility] Diagnosis: ICD-10-CM 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 Diagnosis: ICD-10-CM Z71.9 Counseling, unspecified Active Diagnosis [facility] Diagnosis: ICD-10-CM I48.91 Unspecified atrial fibrillation Active Diagnosis 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 Diagnosis [facility] Diagnosis: ICD-10-CM 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 Active Diagnosis [facility] Diagnosis: ICD-10-CM E11.40 Type 2 diabetes mellitus with diabetic neuropathy, unsp Active [facility] Diagnosis: ICD-10-CM M54.50 Low back pain, unspecified Active Diagnosis [facility]ita [facility] Diagnosis: ICD-10-CM 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, left eye, stable Active Diagnosis [facility] Diagnosis: ICD-10-CM Z13.83 Encounter for screening for respiratory disorder NEC Active Diagnosis [facility] Edita [facility] Diagnosis: ICD-10-CM 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, left eye, with macular edema Active Diagnosis [facility] Ed[facility] Diagnosis: ICD-10-CM H53.8 Other visual disturbances Active Diagnosis [facility] Edita [facility] Diagnosis: ICD-10-CM H43.813 Vitreous degeneration, bilateral Active [facility] Diagnosis: ICD-10-CM H52.13 Myopia, bilateral [facility] Diagnosis: ICD-10-CM R26.9 Unspecified abnormalities of gait and mobility Active [facility] Medications Combined list of outpatient medications from Department of Defense and Veterans Affairs facilities.Medications provided include 1) outpatient medications from the last 15 months, and 2) patient-reported medications. Medication Details Route Status Patient Instructions Prescription Expires Prescription Number Last Dispense Date Ordering Provider Order Date Order Qty Source ACETAMINOPH EN 500MG TAB TAKE ONE TABLET BY MOUTH EVERY 4 HOURS NEEDED FOR PAIN ALSO CALLED TYLENOL. DO NOT EXCEED 3000MG PER 24 HOUR PERIOD FROM ALL SOURCES OF ACETAMIN OPHEN. ALSO CALLED TYLENOL. DO NOT EXCEED 3000MG PER 24 HOUR PERIOD FROM ALL SOURCES OF ACETAMIN OPHEN. ORAL ACTIVE 06/07/2025 [id number] 5 SABRINA GRAHAM 2024 200 [facility] Edita [facility] APIXABAN 5MG TAB TAKE ONE TABLET BY MOUTH TWICE A DAY FOR ATRIAL FIBRILLA TION ORAL ACTIVE 11/08/2025 [id number] 5 Sammy PARK 2024 180 [facility] ASPIRIN 81MG TAB,EC TAKE ONE TABLET BY MOUTH EVERY DAY TO PREVENT BLOOD CLOTS ORAL DISCONT INUED BY PROVIDE R 12/27/2024 [id number] 5 SABRINA GRAHAM 2023 120 [facility] ASPIRIN 81MG TAB,EC TAKE ONE TABLET BY MOUTH EVERY DAY TO PREVENT BLOOD CLOTS ORAL DISCONT INUED 12/25/2023 [id number] 4 SABRINA GRAHAM 2022 120 [facility] С[facility]гейJamey [facility] ATORVASTATI N [place] 80MG TAB TAKE ONE TABLET BY MOUTH EVERY DAY FOR CHOLESTE ROL ORAL ACTIVE 12/27/2024 [id number] 5 SABRINA GRAHAM 2023 90 [facility] ATORVASTATI N [place] 80MG TAB TAKE ONE TABLET BY MOUTH EVERY DAY FOR CHOLESTE ROL ORAL DISCONT INUED 12/25/2023 [id number] 4 SABRINA GRAHAM 2022 90 [facility] BACLOFEN 10MG TAB TAKE ONE TABLET BY MOUTH EVERY MORNING NEEDED AND TAKE TWO TABLETS AT BEDTIME NEEDED FOR MUSCLE SPASM OR MUSCLE PAIN NOTE TO PATIENT: THIS MEDICATI ON CAN CAUSE SLEEPINE SS. ORAL ACTIVE 04/07/2025 [id number] 5 SABRINA GRAHAM 2023 270 [facility] BACLOFEN 10MG TAB TAKE ONE TABLET BY MOUTH EVERY MORNING NEEDED AND TAKE TWO TABLETS AT BEDTIME NEEDED FOR MUSCLE SPASM OR MUSCLE PAIN NOTE TO PATIENT: THIS MEDICATI ON CAN CAUSE SLEEPINE SS. ORAL DISCONT INUED (EDIT) 03/21/2025 [id number] 4 SABRINA GRAHAM 2023 90 [facility] CHOLECALCIF LOREN 25MCG (1,000UNIT) TAB TAKE 1 TABLET (1,000 UNITS) BY MOUTH EVERY DAY FOR VITAMIN D REPLACEM ENT ORAL ACTIVE 12/11/2025 [id number] 5 YANGGEORGIA N 2024 100 [facility] CHOLECALCIF LOREN 25MCG (1,000UNIT) TAB TAKE 1 TABLET (1,000 UNITS) BY MOUTH EVERY DAY FOR VITAMIN D REPLACEM ENT ORAL DISCONT INUED 12/27/2024 [id number] 5 SABRINA GRAHAM 2023 100 [facility] Ed[facility] CLOPIDOGREL BISULFATE 75MG TAB TAKE ONE TABLET BY MOUTH EVERY DAY TO PREVENT BLOOD CLOTS ORAL ACTIVE 12/27/2024 [id number] 5 SABRINA GRAHAM 2023 90 [facility] CLOPIDOGREL BISULFATE 75MG TAB TAKE ONE TABLET BY MOUTH EVERY DAY TO PREVENT BLOOD CLOTS ORAL DISCONT INUED 12/25/2023 [id number] 4 SABRINA GRAHAM 2022 90 [facility] CYANOCOBALA MIN 1000MCG TAB TAKE ONE TABLET BY MOUTH EVERY DAY FOR VITAMIN REPLACEM ENT ORAL ACTIVE 12/27/2024 [id number] 5 SABRINA GRAHAM 2023 100 [facility] CYANOCOBALA MIN 1000MCG TAB TAKE ONE TABLET BY MOUTH EVERY DAY FOR VITAMIN REPLACEM ENT ORAL DISCONT INUED 12/25/2023 [id number] 4 SABRINA GRAHAM 2022 100 [facility] Edita [facility] DICLOFENAC NA 1% GEL,TOP APPLY 2 GRAMS (USE DOSAGE CARD) TOPICALL Y TWICE A DAY NEEDED FOR PAIN APPLY TO RIGHT KNEE TOPICA L 06/28/2024 [id number] SABRINA GRAHAM 2023 200 [facility] DOCUSATE NA 100MG CAP TAKE ONE CAPSULE BY MOUTH TWICE A DAY TO SOFTEN STOOL ORAL ACTIVE 12/27/2024 [id number] 5 SABRINA GRAHAM 2023 200 [facility] Edita [facility] DOCUSATE NA 100MG CAP TAKE ONE CAPSULE BY MOUTH TWICE A DAY TO SOFTEN STOOL ORAL DISCONT INUED 12/25/2023 [id number] 4 SABRINA GRAHAM 2022 200 [facility] EMPAGLIFLOZ IN 25MG TAB TAKE ONE TABLET BY MOUTH EVERY MORNING FOR DIABETES ORAL ACTIVE 12/11/2025 [id number] YANGGEORGIA 2024 90 [facility] EMPAGLIFLOZ IN 25MG TAB TAKE ONE TABLET BY MOUTH EVERY MORNING FOR DIABETES NOTE DOSE INCREASE . ORAL DISCONT INUED 12/11/2025 [id number] 5 YANG,[facility] N 2024 90 [facility] EMPAGLIFLOZ IN 25MG TAB TAKE ONE TABLET BY MOUTH EVERY MORNING FOR DIABETES NOTE DOSE INCREASE . ORAL DISCONT INUED 12/27/2024 [id number] 5 SABRINA GRAHAM 2023 90 [facility] EMPAGLIFLOZ IN 25MG TAB TAKE ONE TABLET BY MOUTH EVERY MORNING FOR DIABETES NOTE DOSE INCREASE . ORAL DISCONT INUED 12/25/2023 [id number] 4 SABRINA GRAHAM 2022 90 [facility] EZETIMIBE 10MG TAB TAKE ONE TABLET BY MOUTH EVERY DAY FOR LOWERING CHOLESTE ROL ORAL ACTIVE 12/27/2024 [id number] 5 SABRINA GRAHAM 2023 90 [facility] EZETIMIBE 10MG TAB TAKE ONE TABLET BY MOUTH EVERY DAY FOR LOWERING CHOLESTE ROL ORAL DISCONT INUED 12/25/2023 [id number] 4 SABRINA GRAHAM 2022 90 [facility] FOLIC ACID 1MG TAB TAKE ONE TABLET BY MOUTH EVERY DAY VITAMIN/ NUTRITIO NAL SUPPLEME NT ORAL ACTIVE 12/27/2024 [id number] 5 SABRINA GRAHAM 2023 90 [facility] FOLIC ACID 1MG TAB TAKE ONE TABLET BY MOUTH EVERY DAY VITAMIN/ NUTRITIO NAL SUPPLEME NT ORAL DISCONT INUED 12/25/2023 [id number] 4 SABRINA GRAHAM 2022 90 [facility] FUROSEMIDE 20MG TAB TAKE ONE TABLET BY MOUTH EVERY DAY NEEDED FOR INCREASE D SHORTNES S OF BREATH, SWELLING OR WEIGHT GAIN GREATER THAN 31 LBS IN 1 DAY OR GREATER THAN 51 LBS IN A WEEK ORAL ACTIVE 12/11/2025 [id number] XAVIERG REGORY 2024 90 AVILA RushingJamey Rodriguez [facility] FUROSEMIDE 20MG TAB TAKE ONE TABLET BY MOUTH EVERY DAY ORAL DISCONT INUED 03/10/2025 [id number] XAVIERG REGORY 2023 30 [facility] СергейJamey Rodriguez [facility] GLIPIZIDE 5MG TAB TAKE ONE TABLET BY MOUTH TWICE A DAY WITH BREAKFAS T AND DINNER FOR DIABETES . DOSE INCREASE ORAL ACTIVE 12/27/2024 [id number] 5 SABRINA GRAHAM 2023 180 AVILA RushingJamey Rodriguez [facility] GLIPIZIDE 5MG TAB TAKE ONE TABLET BY MOUTH TWICE A DAY WITH BREAKFAS T AND DINNER FOR DIABETES . DOSE INCREASE ORAL DISCONT INUED 12/25/2023 [id number] 4 SABRINA GRAHAM 2022 180 AVIL[facility] Rodriguez [facility] GLUCOSAMINE [OTC] MISCELLANEO US GLUCOSAM INE misc EVERY DAY ACTIVE SABRINA GRAHAM 2005 AVILATEDDY Rodriguez [facility] ISOSORBIDE MONONITRATE 30MG TAB,SA TAKE THREE TABLETS BY MOUTH EVERY DAY ORAL ACTIVE 12/27/2024 [id number] 5 SANTOSSABRINA 2023 270 AV[facility] СергейJamey Rodriguez [facility] ISOSORBIDE MONONITRATE 30MG TAB,SA TAKE THREE TABLETS BY MOUTH EVERY DAY ORAL DISCONT INUED 12/25/2023 [id number] 4 YAASABRINA RAWLS 2022 270 AVILA Rodriguez [facility] LIDOCAINE 5% PATCH APPLY 1 PATCH TO SKIN EVERY DAY (LEAVE ON 12 HOURS AND OFF 12 HOURS) FOR LOCALIZE D PAIN; MAY CUT PATCH IN HALF BEFORE REMOVING BACKING; PRESS ON SKIN FOR 15 SECONDS TO ACTIVATE THE ADHESIVE TRANSD ERMAL DISCONT INUED BY PROVIDE R 12/27/2024 [id number] 5 SANTOSSABRINA 2023 90 AVILA Rodriguez [facility] METFORMIN HCL 1000MG TAB TAKE ONE TABLET BY MOUTH TWICE A DAY WITH MEALS FOR DIABETES ORAL ACTIVE 12/27/2024 [id number] 5 SABRINA GRAHAM 2023 180 [facility]ATEDDY [facility] METFORMIN HCL 1000MG TAB TAKE ONE TABLET BY MOUTH TWICE A DAY WITH MEALS FOR DIABETES ORAL DISCONT INUED 12/25/2023 [id number] SABRINA GRAHAM 2022 180 [facility] Ed[facility] METOPROLOL TARTRATE 50MG TAB TAKE ONE-HALF TABLET BY MOUTH TWICE A DAY ORAL DISCONT INUED BY PROVIDE R 12/27/2024 [id number] 5 SABRINA GRAHAM 2023 90 [facility] PREGABALIN 50MG CAP,ORAL TAKE ONE CAPSULE BY MOUTH TWICE A DAY FOR PAIN ORAL ACTIVE 05/11/2025 [id number] 5 SABRINA GRAHAM 2024 60 [facility] PREGABALIN 50MG CAP,ORAL TAKE ONE CAPSULE BY MOUTH AT BEDTIME FOR 2 WEEKS, THEN TAKE ONE CAPSULE TWICE A DAY FOR PAIN ORAL 10/21/2024 [id number] 5 SABRINA GRAHAM 2024 46 [facility] RANOLAZINE 500MG TAB,SA TAKE ONE TABLET BY MOUTH TWICE A DAY FOR ANGINA (SWALLOW TABLET WHOLE) ORAL ACTIVE 12/27/2024 [id number] 5 SABRINA GRAHAM 2023 180 [facility] RANOLAZINE 500MG TAB,SA TAKE ONE TABLET BY MOUTH TWICE A DAY FOR ANGINA (SWALLOW TABLET WHOLE) ORAL DISCONT INUED 12/25/2023 [id number] 4 SABRINA GRAHAM 2022 180 [facility] SODIUM FLUORIDE 1.1% TOOTHPASTE BRUSH SMALL AMOUNT TO TEETH TWICE DAILY FOR TOOTH DECAY PREVENTI ON DENTAL ACTIVE 12/30/2024 [id number] RAJINDER CARRILLO 2023 51 [facility] SPIRONOLACT ONE 25MG TAB TAKE ONE TABLET BY MOUTH EVERY DAY FOR HEART FAILURE ORAL ACTIVE 01/16/2025 [id number] 5 SABRINA GRAHAM 2023 90 AVILA Rodriguez [facility] SPIRONOLACT ONE 25MG TAB TAKE ONE TABLET BY MOUTH EVERY DAY FOR HEART FAILURE ORAL DISCONT INUED 08/19/2024 [id number] SABRINA GRAHAM 2023 90 AVILA Rodriguez [facility] SPIRONOLACT ONE 25MG TAB TAKE ONE TABLET BY MOUTH EVERY DAY FOR HEART FAILURE ORAL DISCONT INUED 08/19/2024 [id number] SABRINA GRAHAM 2023 90 AVILATEDDY Rodriguez [facility] TAFAMIDIS 61MG CAP,ORAL TAKE ONE CAPSULE BY MOUTH EVERY DAY FOR THE HEART ORAL ACTIVE 12/27/2024 [id number] 5 SABRINA GRAHAM 2023 90 AVILATEDDY Rodriguez [facility] TAFAMIDIS 61MG CAP,ORAL TAKE ONE CAPSULE BY MOUTH EVERY DAY FOR THE HEART ORAL DISCONT INUED 03/15/2024 [id number] 4 Gianna CARVALHO 2022 90 AVILATEDDY Rodriguez [facility] Allergies, Adverse Reactions, Alerts Combined list of allergies from Department of Defense and Veterans Affairs facilities. It does not include entries that were removed or entered in error. Substance Category Reaction Severity Reaction type Status Date Reported Comments Source MORPHINE Propensity to adverse reactions to drug (finding) NERVOUSNESS ,AGITATION active 3 [facility] MORPHINE Propensity to adverse reactions to drug (finding) Aggressive behavior, Mood swings active 4 [facility] MORPHINE Propensity to adverse reactions to drug (finding) active 5 [facility] MORPHINE Propensity to adverse reactions to drug (finding) Anxiety active 2 [facility] PENICILLIN Propensity to adverse reactions to drug (finding) OTHER REACTION active 3 [facility] Immunizations Combined list of available immunizations from the Department of Defense and Veterans Affairs facilities. Immunization Series Date Given Administered By Site Reaction Lot Number CVX Code Drug Medical Researcher Status Comments Source INFLUENZA, HIGH-DOSE, TRIVALENT, PF 2024 KATHIE SARMIENTO RIGHT DELTO ID [id number] A 135 complet ed ADMINISTE RED AT PA, [facility] TDAP 2022 115 complet ed HISTORICA L INFORMATI ON - FROM PATIENT'S WRITTEN RECORD, [employer] INFLUENZA VACCINE, QUADRIVALENT, ADJUVANTED 2021 205 complet ed [facility] COVID-19 (MODERNA), MRNA, LNP-S, PF, 100 MCG OR 50 MCG DOSE 3 2021 207 complet ed MOD; [id number]; 2 [facility] INFLUENZA VACCINE, QUADRIVALENT, ADJUVANTED 2020 205 complet ed [facility] TD (ADULT), 5 LF TETANUS TOXOID, PRESERVATIVE FREE, ADSORBED 2020 113 complet ed [facility] ZOSTER RECOMBINANT 2 2020 187 complet ed [facility] COVID-19 (MODERNA), MRNA, LNP-S, PF, 100 MCG/0.5 ML DOSE 2 2020 207 complet ed MOD; [id number]; 1 [facility] COVID-19 (MODERNA), MRNA, LNP-S, PF, 100 MCG/0.5 ML DOSE 1 2020 207 complet ed MOD; [id number]; 1 [facility] INFLUENZA, HIGH-DOSE, QUADRIVALENT 2019 197 complet ed [facility] ZOSTER RECOMBINANT 1 2018 187 complet ed [facility] INFLUENZA, TRIVALENT, ADJUVANTED 2017 168 complet ed [facility] INFLUENZA, HIGH DOSE SEASONAL 2016 135 complet ed [facility] INFLUENZA, HIGH DOSE SEASONAL 2016 135 complet ed [facility] INFLUENZA, HIGH DOSE SEASONAL 2015 135 complet ed [facility] PNEUMOCOCCAL CONJUGATE PCV 13 2014 133 complet ed [facility] FLU,3 YRS (HISTORICAL) 2013 88 complet ed [facility] FLU,3 YRS (HISTORICAL) 2012 88 complet ed [facility] FLU,3 YRS (HISTORICAL) 2011 88 complet ed [facility] ZOSTER LIVE 2011 121 complet ed [facility] FLU,3 YRS (HISTORICAL) 2010 88 complet ed [facility] PNEUMOCOCCAL POLYSACCHARID E PPV23 2010 33 complet ed [facility] FLU,3 YRS (HISTORICAL) 2010 88 complet ed [facility] TDAP 2009 115 complet ed Per patient [facility] FLU,3 YRS (HISTORICAL) 2007 88 complet ed [facility] FLU,3 YRS (HISTORICAL) 2007 88 complet ed [facility] FLU,3 YRS (HISTORICAL) 2006 88 complet ed [facility] FLU,3 YRS (HISTORICAL) 2006 88 complet ed [facility] FLU,3 YRS (HISTORICAL) 2005 88 complet ed [facility] FLU,3 YRS (HISTORICAL) 2005 88 complet ed [facility] PNEUMOCOCCAL, UNSPECIFIED FORMULATION 2004 109 complet ed [facility] TD(ADULT) UNSPECIFIED FORMULATION 2003 139 complet ed [facility] Results Combined list of recent chemistry, hematology and other laboratory results from Department of Defense and Veterans Affairs, ranging from 15 months to all on record, depending upon the facility. Order Name Results Value Reference Range Date Interpretation Specimen Comments Source MICROALB JESUS MONTEZ URINE (AL) CREATININE [MASS/VOLU ME] IN URINE 92.5 mg/dL 06/27 Specimen Type: URINE No comment entered. Ordering Provider: DARIN GRAHAM Report Released Date/Time: Dec 27, 2023 12:42 PM Reporting Lab: [facility]EL[facility] [address] [address] Performing Lab: AVILATEDDY FELIPE [address] [address] AV[facility] FELIPE [facility] MICROALB UMIN,RAN DOM URINE (AL) PROTEIN [MASS/VOLU ME] IN URINE 9.3 mg/dL 06/27 Specimen Type: URINE No comment entered. Ordering Provider: DARIN GRAHAM Report Released Date/Time: Dec 27, 2023 12:42 PM Reporting Lab: [facility]ATED[facility] FELIPE [address] [address] Performing Lab: AVILATEDDY FELIPE [address] [id number] [address] [facility] MICROALB UMIN,RAN DOM URINE (AL) ALBUMIN/CR EATININE [MASS RATIO] IN URINE 5 mg/g 0.0 - 30.0 06/27 Specimen Type: URINE No comment entered. Ordering Provider: DARIN GRAHAM Report Released Date/Time: Dec 27, 2023 12:42 PM Reporting Lab: [facility] FELIPE [address] [address] Performing Lab: [facility]ATED[facility] FELIPE [address] [address] AV[facility]ATEDDY FELIPE [facility] MICROALB UMIN,RAN DOM URINE (AL) ALBUMIN [MASS/VOLU ME] IN URINE 0.5 mg/dL 0.0 - 1.9 06/27 Specimen Type: URINE No comment entered. Ordering Provider: DARIN GRAHAM Report Released Date/Time: Dec 27, 2023 12:42 PM Reporting Lab: [facility]IL[facility] FELIPE [address] [address] Performing Lab: [facility]ILA FELIPE [address] [address] AVILATEDDY FELIPE [facility] URINALYS IS (V2) COLOR OF URINE Yellow 06/27 Specimen Type: URINE No comment entered. Ordering Provider: DARIN GRAHAM Report Released Date/Time: Dec 27, 2023 12:42 PM Reporting Lab: [facility]ATED[facility] FELIPE [address] [address] Performing Lab: [facility]ATED[facility] FELIPE [address] [address] [facility] [facility] [place] URINALYS IS (V2) CLARITY OF URINE Clear 06/27 Specimen Type: URINE No comment entered. Ordering Provider: DARIN GRAHAM Report Released Date/Time: Dec 27, 2023 12:42 PM Reporting Lab: [facility]ILATEDDY FELIPE [address] [address] Performing Lab: AVILA S. [place]ST[place] [address] [address] [facility] Edita [facility] URINALYS IS (V2) SPECIFIC GRAVITY OF URINE BY TEST STRIP 1.021 1.016 - 1.022 06/27 Specimen Type: URINE No comment entered. Ordering Provider: DARIN GRAHAM Report Released Date/Time: Dec 27, 2023 12:42 PM Reporting Lab: [facility]ATED[facility] FELIPE [address] [address] Performing Lab: AVILA S. DESTIN[place] [address] [address] [facility] Сергей. [facility] URINALYS IS (V2) GLUCOSE [MASS/VOLU ME] IN URINE BY TEST STRIP 500 mg/dL 06/27 H Specimen Type: URINE No comment entered. Ordering Provider: DARIN GRAHAM Report Released Date/Time: Dec 27, 2023 12:42 PM Reporting Lab: [facility]ATED[facility] FELIPE [address] [address] Performing Lab: AVILATEDDY FELIPE [address] [address] AVILA S. [facility] URINALYS IS (V2) KETONES [MASS/VOLU ME] IN URINE BY TEST STRIP Negative mg/dL 06/27 Specimen Type: URINE No comment entered. Ordering Provider: DARIN GRAHAM Report Released Date/Time: Dec 27, 2023 12:42 PM Reporting Lab: AVILA S. [place] [address] [address] Performing Lab: [facility] Сергей. [place]ST[place] [address] [address] [facility] S. [facility] URINALYS IS (V2) HEMOGLOBIN [PRESENCE] IN URINE BY TEST STRIP Negative 06/27 Specimen Type: URINE No comment entered. Ordering Provider: DARIN GRAHAM Report Released Date/Time: Dec 27, 2023 12:42 PM Reporting Lab: AVILA FELIPE [address] [address] Performing Lab: AVILA FELIPE [address] [address] [facility] URINALYS IS (V2) PROTEIN [MASS/VOLU ME] IN URINE BY TEST STRIP Negative mg/dL 06/27 Specimen Type: URINE No comment entered. Ordering Provider: DARIN GRAHAM Report Released Date/Time: Dec 27, 2023 12:42 PM Reporting Lab: AVILA FELIPE [address] [address] Performing Lab: AVILATEDDY FELIPE [address] [facility] URINALYS IS (V2) PH OF URINE BY TEST STRIP 5.5 5.0 - 9.0 06/27 Specimen Type: URINE No comment entered. Ordering Provider: DARIN GRAHAM Report Released Date/Time: Dec 27, 2023 12:42 PM Reporting Lab: AVILA FELIPE [address] [address] Performing Lab: AVILATEDDY FELIPE [address] Edita [facility] URINALYS IS (V2) BILIRUBIN. TOTAL [PRESENCE] IN URINE BY TEST STRIP Negative 06/27 Specimen Type: URINE No comment entered. Ordering Provider: DARIN GRAHAM Report Released Date/Time: Dec 27, 2023 12:42 PM Reporting Lab: AVILATEDDY FELIPE [address] [address] Performing Lab: AVILATEDDY FELIPE [address] Edita [facility] URINALYS IS (V2) UROBILINOG EN [UNITS/VOL UME] IN URINE BY TEST STRIP Normalmg /dL 06/27 Specimen Type: URINE No comment entered. Ordering Provider: DARIN GRAHAM Report Released Date/Time: Dec 27, 2023 12:42 PM Reporting Lab: AVILA S. [place] [address] [address] Performing Lab: AVILA S. [place]ST[place] [address] [address] AVILA S. [place] [facility] URINALYS IS (V2) NITRITE [PRESENCE] IN URINE BY TEST STRIP Negative 06/27 Specimen Type: URINE No comment entered. Ordering Provider: DARIN GRAHAM Report Released Date/Time: Dec 27, 2023 12:42 PM Reporting Lab: AVILA S. [place] [address] [address] Performing Lab: AVILA S. [place] [address] [facility] URINALYS IS (V2) LEUKOCYTE ESTERASE [PRESENCE] IN URINE BY TEST STRIP LARGE 06/27 H Specimen Type: URINE No comment entered. Ordering Provider: DARIN GRAHAM Report Released Date/Time: Dec 27, 2023 12:42 PM Reporting Lab: AVILA Rushing. [place] [address] [address] Performing Lab: AVILA S. DESTIENE [address] [phone] [facility] URINALYS IS (V2) LEUKOCYTES [#/AREA] IN URINE SEDIMENT BY MICROSCOPY HIGH POWER FIELD 11-25/[H PF] 0 - 2 06/27 H Specimen Type: URINE No comment entered. Ordering Provider: DARIN GRAHAM Report Released Date/Time: Dec 27, 2023 12:42 PM Reporting Lab: AVILA S. [place] [address] [address] Performing Lab: AVILA S. [place] [address] [address] AVILA S. [facility] URINALYS IS (V2) ERYTHROCYT ES [#/VOLUME] IN URINE SEDIMENT BY MICROSCOPY HIGH POWER FIELD 0-2/[HPF ] 0 - 2 06/27 Specimen Type: URINE No comment entered. Ordering Provider: DARIN GRAHAM Report Released Date/Time: Dec 27, 2023 12:42 PM Reporting Lab: AVILA FELIPE [address] [address] Performing Lab: AVILA FELIPE [address] [address] [facility] [place] [facility] (V2) EPITHELIAL CELLS.SQUA MOUS [#/AREA] IN URINE SEDIMENT BY MICROSCOPY HIGH POWER FIELD 0-2/[HPF ] 0 - 5 06/27 Specimen Type: URINE No comment entered. Ordering Provider: DARIN GRAHAM Report Released Date/Time: Dec 27, 2023 12:42 PM Reporting Lab: AVILA FELIPE [address] [address] Performing Lab: AVILA FELIPE [address] [address] AVILATEDDY FELIPE [facility] URINALYS IS (V2) MUCUS [PRESENCE] IN URINE SEDIMENT BY LIGHT MICROSCOPY FEW 06/27 Specimen Type: URINE No comment entered. Ordering Provider: DARIN GRAHAM Report Released Date/Time: Dec 27, 2023 12:42 PM Reporting Lab: AVILA FELIPE [address] [address] Performing Lab: AVILA FELIPE [address] [address] AV[facility] Jamey [facility] LIPID PANEL (AL) CHOLESTERO L [MASS/VOLU ME] IN SERUM OR PLASMA 153 mg/dL 0 - 200 06/27 Specimen Type: SERUM Comment: eGFR calculated using the 2020 CKD-EPI Creatinine equation: eGFR and Chronic Kidney Disease (CKD) Stages: >90 ml/min G1 - Normal 60-89 ml/min G2 - Mild decrease in kidney function 45-59 ml/min G3A - Mild to moderate decrease in kidney function 30-44 ml/min G3B - Moderate to severe decrease in kidney function 15-29 ml/min G4 - Severe decrease in kidney function <15 ml/min G5 - Kidney failure Reference: [email or web address] Ordering Provider: DARIN GRAHAM Report Released Date/Time: Dec 27, 2023 12:42 PM Reporting Lab: AVILATEDDY FELIPE [address] [address] Performing Lab: AVILA Kohler [address] [address] [facility] LIPID PANEL (AL) CHOLESTERO L IN HDL [MASS/VOLU ME] IN SERUM OR PLASMA 41.5 mg/dL 06/27 Specimen Type: SERUM Comment: eGFR calculated using the 2020 CKD-EPI Creatinine equation: eGFR and Chronic Kidney Disease (CKD) Stages: >90 ml/min G1 - Normal 60-89 ml/min G2 - Mild decrease in kidney function 45-59 ml/min G3A - Mild to moderate decrease in kidney function 30-44 ml/min G3B - Moderate to severe decrease in kidney function 15-29 ml/min G4 - Severe decrease in kidney function <15 ml/min G5 - Kidney failure Reference: [email or web address] Ordering Provider: DARIN GRAHAM Report Released Date/Time: Dec 27, 2023 12:42 PM Reporting Lab: [place] [phone] Performing Lab: [place] [phone] [facility] LIPID PANEL (AL) CHOLESTERO L IN LDL [MASS/VOLU ME] IN SERUM OR PLASMA BY CALCULAETHAN N 83.9 mg/dL 06/27 Specimen Type: SERUM Comment: eGFR calculated using the 2020 CKD-EPI Creatinine equation: eGFR and Chronic Kidney Disease (CKD) Stages: >90 ml/min G1 - Normal 60-89 ml/min G2 - Mild decrease in kidney function 45-59 ml/min G3A - Mild to moderate decrease in kidney function 30-44 ml/min G3B - Moderate to severe decrease in kidney function 15-29 ml/min G4 - Severe decrease in kidney function <15 ml/min G5 - Kidney failure Reference: [email or web address] Ordering Provider: DARIN GRAHAM Report Released Date/Time: Dec 27, 2023 12:42 PM Reporting Lab: [address] [address] Performing Lab: [address] [address] [facility] LIPID PANEL (AL) TRIGLYCERI DE [MASS/VOLU ME] IN SERUM OR PLASMA 137 mg/dL 30 - 150 06/27 Specimen Type: SERUM Comment: eGFR calculated using the 2020 CKD-EPI Creatinine equation: eGFR and Chronic Kidney Disease (CKD) Stages: >90 ml/min G1 - Normal 60-89 ml/min G2 - Mild decrease in kidney function 45-59 ml/min G3A - Mild to moderate decrease in kidney function 30-44 ml/min G3B - Moderate to severe decrease in kidney function 15-29 ml/min G4 - Severe decrease in kidney function <15 ml/min G5 - Kidney failure Reference: [email or web address] Ordering Provider: DARIN GRAHAM Report Released Date/Time: Dec 27, 2023 12:42 PM Reporting [facility]: [facility] [address] [address] Performing Lab: [facility] [address] [phone] HEMOGLOB IN A1C (AL) HEMOGLOBIN A1C/HEMOGL OBIN.TOTAL IN BLOOD 8.2 4.4 - 6.6 06/27 H Specimen Type: BLOOD Comment: Values obtained from A1C measurement s can vary. For typical A1C assays, a reported value of 7.0 could actually be between 6.72 and 7.28 if measured by a reference method. A reported value of 9.0 could actually be between 8.73 and 9.27. Ref: [email or web address] Ordering Provider: DARIN GRAHAM Report Released Date/Time: Dec 27, 2023 12:42 PM Reporting Lab: AVILA S. [address] [address] Performing Lab: [facility] [address] [address] [facility] VIT D, 25-HYDRO XY (V2) 25-HYDROXY VITAMIN D3 [MASS/VOLU ME] IN SERUM OR PLASMA 37.4 ng/mL 21 - 50 06/27 Specimen Type: SERUM No comment entered. Ordering Provider: DARIN GRAHAM Report Released Date/Time: Dec 27, 2023 03:49 PM Reporting Lab: [facility]. [place] [address] [address] Performing Lab: AVILATEDDY FELIPE [address] [address] AVILA Edita [facility] COMPREHE NSIVE METABOLI C PANEL (V2) ALKALINE PHOSPHATAS E [ENZYMATIC ACTIVITY/V OLUME] IN SERUM OR PLASMA 57 50 - 136 06/27 Specimen Type: SERUM Comment: eGFR calculated using the 2020 CKD-EPI Creatinine equation: eGFR and Chronic Kidney Disease (CKD) Stages: >90 ml/min G1 - Normal 60-89 ml/min G2 - Mild decrease in kidney function 45-59 ml/min G3A - Mild to moderate decrease in kidney function 30-44 ml/min G3B - Moderate to severe decrease in kidney function 15-29 ml/min G4 - Severe decrease in kidney function <15 ml/min G5 - Kidney failure Reference: [email or web address] Ordering Provider: DARIN GRAHAM Report Released Date/Time: Dec 27, 2023 12:42 PM Reporting Lab: AVILA S. [address] [address] Performing Lab: AVILA S. [address] [address] [facility] COMPREHE NSIVE METABOLI C PANEL (V2) ALBUMIN [MASS/VOLU ME] IN SERUM OR PLASMA 4.0 g/dL 3.4 - 4.5 06/27 Specimen Type: SERUM Comment: eGFR calculated using the 2020 CKD-EPI Creatinine equation: eGFR and Chronic Kidney Disease (CKD) Stages: >90 ml/min G1 - Normal 60-89 ml/min G2 - Mild decrease in kidney function 45-59 ml/min G3A - Mild to moderate decrease in kidney function 30-44 ml/min G3B - Moderate to severe decrease in kidney function 15-29 ml/min G4 - Severe decrease in kidney function <15 ml/min G5 - Kidney failure Reference: [email or web address] Ordering Provider: DARIN GRAHAM Report Released Date/Time: Dec 27, 2023 12:42 PM Reporting Lab: AVILA S. [address] [address] Performing Lab: AVILA Edita [address] [address] [facility] COMPREHE NSIVE METABOLI C PANEL (V2) POTASSIUM [MOLES/VOL UME] IN SERUM OR PLASMA 4.3 meq/L 3.8 - 5.1 06/27 Specimen Type: SERUM Comment: eGFR calculated using the 2020 CKD-EPI Creatinine equation: eGFR and Chronic Kidney Disease (CKD) Stages: >90 ml/min G1 - Normal 60-89 ml/min G2 - Mild decrease in kidney function 45-59 ml/min G3A - Mild to moderate decrease in kidney function 30-44 ml/min G3B - Moderate to severe decrease in kidney function 15-29 ml/min G4 - Severe decrease in kidney function <15 ml/min G5 - Kidney failure Reference: [email or web address] Ordering Provider: DARIN GRAHAM Report Released Date/Time: Dec 27, 2023 12:42 PM Reporting Lab: [place] [phone] Performing Lab: [address] [address] [facility] COMPREHE NSIVE METABOLI C PANEL (V2) SODIUM [MOLES/VOL UME] IN BLOOD 139 meq/L 135 - 145 06/27 Specimen Type: SERUM Comment: eGFR calculated using the 2020 CKD-EPI Creatinine equation: eGFR and Chronic Kidney Disease (CKD) Stages: >90 ml/min G1 - Normal 60-89 ml/min G2 - Mild decrease in kidney function 45-59 ml/min G3A - Mild to moderate decrease in kidney function 30-44 ml/min G3B - Moderate to severe decrease in kidney function 15-29 ml/min G4 - Severe decrease in kidney function <15 ml/min G5 - Kidney failure Reference: [email or web address] Ordering Provider: DARIN GRAHAM Report Released Date/Time: Dec 27, 2023 12:42 PM Reporting Lab: [address] [address] Performing Lab: [address] [address] [facility] COMPREHE NSIVE METABOLI C PANEL (V2) ALANINE AMINOTRANS FERASE [ENZYMATIC ACTIVITY/V OLUME] IN SERUM OR PLASMA 28 10 - 55 06/27 Specimen Type: SERUM Comment: eGFR calculated using the 2020 CKD-EPI Creatinine equation: eGFR and Chronic Kidney Disease (CKD) Stages: >90 ml/min G1 - Normal 60-89 ml/min G2 - Mild decrease in kidney function 45-59 ml/min G3A - Mild to moderate decrease in kidney function 30-44 ml/min G3B - Moderate to severe decrease in kidney function 15-29 ml/min G4 - Severe decrease in kidney function <15 ml/min G5 - Kidney failure Reference: [email or web address] Ordering Provider: DARIN GRAHAM Report Released Date/Time: Dec 27, 2023 12:42 PM Reporting Lab: AVILA FELIPE [address] [address] Performing Lab: AVILA S. [address] [phone] [address] STREETJamey [facility] COMPREHE NSIVE METABOLI C PANEL (V2) UREA NITROGEN [MASS/VOLU ME] IN SERUM OR PLASMA 26 mg/dL 9 - 26 06/27 Specimen Type: SERUM Comment: eGFR calculated using the 2020 CKD-EPI Creatinine equation: eGFR and Chronic Kidney Disease (CKD) Stages: >90 ml/min G1 - Normal 60-89 ml/min G2 - Mild decrease in kidney function 45-59 ml/min G3A - Mild to moderate decrease in kidney function 30-44 ml/min G3B - Moderate to severe decrease in kidney function 15-29 ml/min G4 - Severe decrease in kidney function <15 ml/min G5 - Kidney failure Reference: [email or web address] Ordering Provider: DARIN GRAHAM Report Released Date/Time: Dec 27, 2023 12:42 PM Reporting Lab: AVILA FELIPE [address] [address] Performing Lab: AVILA S. [address] [address] [facility] COMPREHE NSIVE METABOLI C PANEL (V2) CHLORIDE [MOLES/VOL UME] IN SERUM OR PLASMA 103 meq/L 97 - 109 06/27 Specimen Type: SERUM Comment: eGFR calculated using the 2020 CKD-EPI Creatinine equation: eGFR and Chronic Kidney Disease (CKD) Stages: >90 ml/min G1 - Normal 60-89 ml/min G2 - Mild decrease in kidney function 45-59 ml/min G3A - Mild to moderate decrease in kidney function 30-44 ml/min G3B - Moderate to severe decrease in kidney function 15-29 ml/min G4 - Severe decrease in kidney function <15 ml/min G5 - Kidney failure Reference: [email or web address] Ordering Provider: DARIN GRAHAM Report Released Date/Time: Dec 27, 2023 12:42 PM Reporting Lab: AVILA RushingJamey FELIPE [address] [address] Performing Lab: AVILA СергейJamey FELIPE [address] [address] AVILA СергейJamey FELIPE [facility] COMPREHE NSIVE METABOLI C PANEL (V2) CARBON DIOXIDE, TOTAL [MOLES/VOL UME] IN SERUM OR PLASMA 26 meq/L - 06/27 Specimen Type: SERUM Comment: eGFR calculated using the 2020 CKD-EPI Creatinine equation: eGFR and Chronic Kidney Disease (CKD) Stages: >90 ml/min G1 - Normal 60-89 ml/min G2 - Mild decrease in kidney function 45-59 ml/min G3A - Mild to moderate decrease in kidney function 30-44 ml/min G3B - Moderate to severe decrease in kidney function 15-29 ml/min G4 - Severe decrease in kidney function <15 ml/min G5 - Kidney failure Reference: [email or web address] Ordering Provider: DARIN GRAHAM Report Released Date/Time: Dec 27, 2023 12:42 PM Reporting Lab: AVILA RushingJamey CARDENASDESTINEE [address] [address] Performing Lab: AVILA SJamey [place] [address] [address] AVILA СергейJamey [facility] COMPREHE NSIVE METABOLI C PANEL (V2) ASPARTATE AMINOTRANS FERASE [ENZYMATIC ACTIVITY/V OLUME] IN SERUM OR PLASMA 17 6 - 32 06/27 Specimen Type: SERUM Comment: eGFR calculated using the 2020 CKD-EPI Creatinine equation: eGFR and Chronic Kidney Disease (CKD) Stages: >90 ml/min G1 - Normal 60-89 ml/min G2 - Mild decrease in kidney function 45-59 ml/min G3A - Mild to moderate decrease in kidney function 30-44 ml/min G3B - Moderate to severe decrease in kidney function 15-29 ml/min G4 - Severe decrease in kidney function <15 ml/min G5 - Kidney failure Reference: [email or web address] Ordering Provider: DARIN GRAHAM Report Released Date/Time: Dec 27, 2023 12:42 PM Reporting Lab: AVILATEDDY FELIPE [address] [address] Performing Lab: AVILA S. [address] [address] [facility] COMPREHE NSIVE METABOLI C PANEL (V2) CALCIUM [MASS/VOLU ME] IN SERUM OR PLASMA 10.4 mg/dL 8.3 - 10.6 06/27 Specimen Type: SERUM Comment: eGFR calculated using the 2020 CKD-EPI Creatinine equation: eGFR and Chronic Kidney Disease (CKD) Stages: >90 ml/min G1 - Normal 60-89 ml/min G2 - Mild decrease in kidney function 45-59 ml/min G3A - Mild to moderate decrease in kidney function 30-44 ml/min G3B - Moderate to severe decrease in kidney function 15-29 ml/min G4 - Severe decrease in kidney function <15 ml/min G5 - Kidney failure Reference: [email or web address] Ordering Provider: DARIN GRAHAM Report Released Date/Time: Dec 27, 2023 12:42 PM Reporting Lab: AVILA TRAORE[address] [address] Performing Lab: AVILA S. [address] [address] [facility] COMPREHE NSIVE METABOLI C PANEL (V2) PROTEIN [MASS/VOLU ME] IN SERUM OR PLASMA 6.6 g/dL 6.3 - 8.0 06/27 Specimen Type: SERUM Comment: eGFR calculated using the 2020 CKD-EPI Creatinine equation: eGFR and Chronic Kidney Disease (CKD) Stages: >90 ml/min G1 - Normal 60-89 ml/min G2 - Mild decrease in kidney function 45-59 ml/min G3A - Mild to moderate decrease in kidney function 30-44 ml/min G3B - Moderate to severe decrease in kidney function 15-29 ml/min G4 - Severe decrease in kidney function <15 ml/min G5 - Kidney failure Reference: [email or web address] Ordering Provider: DARIN GRAHAM Report Released Date/Time: Dec 27, 2023 12:42 PM Reporting Lab: AVILA FELIPE [address] [address] Performing Lab: AVILA FELIPE [address] [address] AVILATEDDY FELIPE [facility] COMPREHE NSIVE METABOLI C PANEL (V2) GLUCOSE [MASS/VOLU ME] IN SERUM OR PLASMA 176 mg/dL 70 - 140 06/27 H Specimen Type: SERUM Comment: eGFR calculated using the 2020 CKD-EPI Creatinine equation: eGFR and Chronic Kidney Disease (CKD) Stages: >90 ml/min G1 - Normal 60-89 ml/min G2 - Mild decrease in kidney function 45-59 ml/min G3A - Mild to moderate decrease in kidney function 30-44 ml/min G3B - Moderate to severe decrease in kidney function 15-29 ml/min G4 - Severe decrease in kidney function <15 ml/min G5 - Kidney failure Reference: [email or web address] Ordering Provider: DRAIN GRAHAM Report Released Date/Time: Dec 27, 2023 12:42 PM Reporting Lab: AVILA FELIPE [address] [address] Performing Lab: AVILA FELIPE [address] [address] [facility] S. [facility] COMPREHE NSIVE METABOLI C PANEL (V2) CREATININE [MASS/VOLU ME] IN SERUM OR PLASMA 1.01 mg/dL 0.5 - 1.2 06/27 Specimen Type: SERUM Comment: eGFR calculated using the 2020 CKD-EPI Creatinine equation: eGFR and Chronic Kidney Disease (CKD) Stages: >90 ml/min G1 - Normal 60-89 ml/min G2 - Mild decrease in kidney function 45-59 ml/min G3A - Mild to moderate decrease in kidney function 30-44 ml/min G3B - Moderate to severe decrease in kidney function 15-29 ml/min G4 - Severe decrease in kidney function <15 ml/min G5 - Kidney failure Reference: [email or web address] Ordering Provider: DARIN GRAHAM Report Released Date/Time: Dec 27, 2023 12:42 PM Reporting Lab: AVILA S. [address] [address] Performing Lab: AVILA S. [address] [address] [facility] COMPREHE NSIVE METABOLI C PANEL (V2) BILIRUBIN. TOTAL [MASS/VOLU ME] IN SERUM OR PLASMA 0.8 mg/dL 0.3 - 1.2 06/27 Specimen Type: SERUM Comment: eGFR calculated using the 2020 CKD-EPI Creatinine equation: eGFR and Chronic Kidney Disease (CKD) Stages: >90 ml/min G1 - Normal 60-89 ml/min G2 - Mild decrease in kidney function 45-59 ml/min G3A - Mild to moderate decrease in kidney function 30-44 ml/min G3B - Moderate to severe decrease in kidney function 15-29 ml/min G4 - Severe decrease in kidney function <15 ml/min G5 - Kidney failure Reference: [email or web address] Ordering Provider: DARIN GRAHAM Report Released Date/Time: Dec 27, 2023 12:42 PM Reporting Lab: AVILA S. [address] [address] Performing Lab: AVILA S. [address] [address] [facility] COMPREHE NSIVE METABOLI C PANEL (V2) GLOMERULAR FILTRATION RATE/1.73 SQ M.PREDICTE D [VOLUME RATE/AREA] IN SERUM, PLASMA OR BLOOD BY CREATININE -BASED FORMULA (CKD-EPI 2020) 76 mL/min 90 06/27 L Specimen Type: SERUM Comment: eGFR calculated using the 2020 CKD-EPI Creatinine equation: eGFR and Chronic Kidney Disease (CKD) Stages: >90 ml/min G1 - Normal 60-89 ml/min G2 - Mild decrease in kidney function 45-59 ml/min G3A - Mild to moderate decrease in kidney function 30-44 ml/min G3B - Moderate to severe decrease in kidney function 15-29 ml/min G4 - Severe decrease in kidney function <15 ml/min G5 - Kidney failure Reference: [email or web address] Ordering Provider: DARIN GRAHAM Report Released Date/Time: Dec 27, 2023 12:42 PM Reporting Lab: AVILA S. [place] [phone] Performing Lab: AVILATEDDY FELIPE [place] [phone]TEDDY [facility]NA[facility]ULT[facility] CBC (WITH DIFF) (V2) BASOPHILS [#/VOLUME] IN BLOOD BY AUTOMATED COUNT 0.0 10*3/uL 0.0 - 0.3 06/27 Specimen Type: BLOOD No comment entered. Ordering Provider: DARIN GRAHAM Report Released Date/Time: Dec 27, 2023 12:42 PM Reporting Lab: AVILA FELIPE [place] [phone] Performing Lab: AVILA S. [address] [facility] CBC (WITH DIFF) (V2) BASOPHILS/ 100 LEUKOCYTES IN BLOOD BY AUTOMATED COUNT 0.5 0.0 - 2.0 06/27 Specimen Type: BLOOD No comment entered. Ordering Provider: DARIN GRAHAM Report Released Date/Time: Dec 27, 2023 12:42 PM Reporting Lab: AVILA FELIPE [address] [address] Performing Lab: AVILA FELIPE [address] [facility] CBC (WITH DIFF) (V2) NEUTROPHIL S/100 LEUKOCYTES IN BLOOD BY AUTOMATED COUNT 63.3 45.0 - 72.0 06/27 Specimen Type: BLOOD No comment entered. Ordering Provider: DARIN GRAHAM Report Released Date/Time: Dec 27, 2023 12:42 PM Reporting Lab: AVILATEDDY TRAORE[address] [address] Performing Lab: AVILA S. [address] [address] AVILA S. [facility] CBC (WITH DIFF) (V2) NEUTROPHIL S [#/VOLUME] IN BLOOD BY AUTOMATED COUNT 3.8 10*3/uL 2.40 - 6.80 06/27 Specimen Type: BLOOD No comment entered. Ordering Provider: DARIN GRAHAM Report Released Date/Time: Dec 27, 2023 12:42 PM Reporting Lab: AVILA FELIPE [place] [id number] Performing Lab: [facility] [place] [id number] Kohler [facility] CBC (WITH DIFF) (V2) EOSINOPHIL S [#/VOLUME] IN BLOOD BY AUTOMATED COUNT 0.2 10*3/uL 0.1 - 0.5 06/27 Specimen Type: BLOOD No comment entered. Ordering Provider: DARIN GRAHAM Report Released Date/Time: Dec 27, 2023 12:42 PM Reporting Lab: [place] [phone] Performing Lab: [facility] [address] Edita [facility] CBC (WITH DIFF) (V2) EOSINOPHIL S/100 LEUKOCYTES IN BLOOD BY AUTOMATED COUNT 3.9 0.7 - 6.6 06/27 Specimen Type: BLOOD No comment entered. Ordering Provider: DARIN GRAHAM Report Released Date/Time: Dec 27, 2023 12:42 PM Reporting Lab: [facility] [id number] [address] [address] Performing Lab: AVILA FELIPE [address] Kohler [facility] CBC (WITH DIFF) (V2) LYMPHOCYTE S/100 LEUKOCYTES IN BLOOD BY AUTOMATED COUNT 21.2 16.0 - 40.0 06/27 Specimen Type: BLOOD No comment entered. Ordering Provider: DARIN GRAHAM Report Released Date/Time: Dec 27, 2023 12:42 PM Reporting Lab: AVILA FELIPE [address] [address] Performing Lab: AVILA Rushing. DESTINEE [address] [address] AVILA S. [facility] CBC (WITH DIFF) (V2) LYMPHOCYTE S [#/VOLUME] IN BLOOD BY AUTOMATED COUNT 1.3 10*3/uL 1.0 - 3.0 06/27 Specimen Type: BLOOD No comment entered. Ordering Provider: DARIN GRAHAM Report Released Date/Time: Dec 27, 2023 12:42 PM Reporting Lab: AVILA SJamey DESTINEE[address] [address] Performing Lab: AVILA S. DESTINEE [place] [id number] [facility] CBC (WITH DIFF) (V2) MONOCYTES/ 100 LEUKOCYTES IN BLOOD BY AUTOMATED COUNT 10.6 5.5 - 13.5 06/27 Specimen Type: BLOOD No comment entered. Ordering Provider: DARIN GRAHAM Report Released Date/Time: Dec 27, 2023 12:42 PM Reporting Lab: AVILA S. [address]STINEE[address] [address] Performing Lab: AVILA S. [address] [facility] CBC (WITH DIFF) (V2) MONOCYTES/ LEUKOCYTES [PURE NUMBER FRACTION] IN BLOOD BY AUTOMATED COUNT 0.6 10*3/uL 0.3 - 0.8 06/27 Specimen Type: BLOOD No comment entered. Ordering Provider: DARIN GRAHAM Report Released Date/Time: Dec 27, 2023 12:42 PM Reporting Lab: AVILA SJamey TRAORE[address] [address] Performing Lab: AVILATEDDY TRAORE[address] [address] AVILA СергейJamey [facility] CBC (WITH DIFF) (V2) MCHC [MASS/VOLU ME] BY AUTOMATED COUNT 32.6 g/dL 32.6 - 34.7 06/27 Specimen Type: BLOOD No comment entered. Ordering Provider: DARIN GRAHAM Report Released Date/Time: Dec 27, 2023 12:42 PM Reporting Lab: AVILATEDDY TRAORE[address] [address] Performing Lab: AVILA S. DESTINEE[address] [address] AVILA S. [facility] CBC (WITH DIFF) (V2) HEMOGLOBIN [MASS/VOLU ME] IN BLOOD 13.8 g/dL 13.5 - 17.0 06/27 Specimen Type: BLOOD No comment entered. Ordering Provider: DARIN GRAHAM Report Released Date/Time: Dec 27, 2023 12:42 PM Reporting Lab: AVILA Jamey [address] [address] Performing Lab: [facility]. [address] [address] [facility] CBC (WITH DIFF) (V2) HEMATOCRIT [VOLUME FRACTION] OF BLOOD BY AUTOMATED COUNT 42.3 38.0 - 50.0 06/27 Specimen Type: BLOOD No comment entered. Ordering Provider: DARIN GRAHAM Report Released Date/Time: Dec 27, 2023 12:42 PM Reporting Lab: [facility] [address] [address] Performing Lab: [address] [address] [facility] CBC (WITH DIFF) (V2) ERYTHROCYT ES [#/VOLUME] IN BLOOD BY AUTOMATED COUNT 4.54 10*6/uL 4.3 - 5.5 06/27 Specimen Type: BLOOD No comment entered. Ordering Provider: DARIN GRAHAM Report Released Date/Time: Dec 27, 2023 12:42 PM Reporting Lab: AVILA Jamey [address] [address] Performing Lab: [facility] [address] [address] [facility] CBC (WITH DIFF) (V2) LEUKOCYTES [#/VOLUME] IN BLOOD BY AUTOMATED COUNT 5.9 10*3/uL 4.4 - 10.7 06/27 Specimen Type: BLOOD No comment entered. Ordering Provider: DARIN GRAHAM Report Released Date/Time: Dec 27, 2023 12:42 PM Reporting Lab: [facility] [address] [address] Performing Lab: [facility]. [address] [address] [facility] CBC (WITH DIFF) (V2) ERYTHROCYT E DISTRIBUTI ON WIDTH [RATIO] BY AUTOMATED COUNT 12.9 11.7 - 14.0 06/27 Specimen Type: BLOOD No comment entered. Ordering Provider: DARIN GRAHAM Report Released Date/Time: Dec 27, 2023 12:42 PM Reporting Lab: [facility] [address] [address] Performing Lab: [address] [address] [facility] CBC (WITH DIFF) (V2) MCH [ENTITIC MASS] BY AUTOMATED COUNT 30.4 pg 27.0 - 33.0 06/27 Specimen Type: BLOOD No comment entered. Ordering Provider: DARIN GRAHAM Report Released Date/Time: Dec 27, 2023 12:42 PM Reporting Lab: [address] [address] Performing Lab: [place] [id number] CBC (WITH DIFF) (V2) MCV [ENTITIC VOLUME] BY AUTOMATED COUNT 93.2 fL 83.0 - 98.0 06/27 Specimen Type: BLOOD No comment entered. Ordering Provider: DARIN GRAHAM Report Released Date/Time: Dec 27, 2023 12:42 PM Reporting Lab: [facility] [address] [address] Performing Lab: [address] [phone] CBC (WITH DIFF) (V2) PLATELETS [#/VOLUME] IN BLOOD BY AUTOMATED COUNT 194 10*3/uL 140 - 375 06/27 Specimen Type: BLOOD No comment entered. Ordering Provider: DARIN GRAHAM Report Released Date/Time: Dec 27, 2023 12:42 PM Reporting Lab: [address] [address] Performing Lab: [address] [address] [facility] CBC (WITH DIFF) (V2) PLATELET MEAN VOLUME [ENTITIC VOLUME] IN BLOOD BY AUTOMATED COUNT 9.7 fL 9.0 - 12.6 06/27 Specimen Type: BLOOD No comment entered. Ordering Provider: DARIN GRAHAM Report Released Date/Time: Dec 27, 2023 12:42 PM Reporting Lab: [address] [address] Performing Lab: [address] [address] [facility] CBC (WITH DIFF) (V2) IMMATURE GRANULOCYT ES [#/VOLUME] IN BLOOD BY AUTOMATED COUNT 0.03 10*3/uL 0.00 - 0.08 06/27 Specimen Type: BLOOD No comment entered. Ordering Provider: DARIN GRAHAM Report Released Date/Time: Dec 27, 2023 12:42 PM Reporting Lab: [address] [address] Performing Lab: [address] [address] [facility] CBC (WITH DIFF) (V2) IMMATURE GRANULOCYT ES/100 LEUKOCYTES IN BLOOD 0.5 0.0 - 1.0 06/27 Specimen Type: BLOOD No comment entered. Ordering Provider: DARIN GRAHAM Report Released Date/Time: Dec 27, 2023 12:42 PM Reporting Lab: [address] [address] Performing Lab: [address] [phone] IRON SATURATI ON (SY/AL/B H) IRON SATURATION [MASS FRACTION] IN SERUM OR PLASMA 25.0 17 - 44 12/26 Specimen Type: SERUM Comment: eGFR calculated using the 2020 CKD-EPI Creatinine equation: eGFR and Chronic Kidney Disease (CKD) Stages: >90 ml/min G1 - Normal 60-89 ml/min G2 - Mild decrease in kidney function 45-59 ml/min G3A - Mild to moderate decrease in kidney function 30-44 ml/min G3B - Moderate to severe decrease in kidney function 15-29 ml/min G4 - Severe decrease in kidney function <15 ml/min G5 - Kidney failure Reference: [email or web address] Ordering Provider: DARIN GRAHAM Report Released Date/Time: Jun 28, 2023 12:43 PM Reporting Lab: AVILA FELIPE [address] [address] Performing Lab: AVILA FELIPE [address] [address] [facility] IRON (V2) IRON [MASS/VOLU ME] IN SERUM OR PLASMA 96 ug/dL 35 - 150 12/26 Specimen Type: SERUM Comment: eGFR calculated using the 2020 CKD-EPI Creatinine equation: eGFR and Chronic Kidney Disease (CKD) Stages: >90 ml/min G1 - Normal 60-89 ml/min G2 - Mild decrease in kidney function 45-59 ml/min G3A - Mild to moderate decrease in kidney function 30-44 ml/min G3B - Moderate to severe decrease in kidney function 15-29 ml/min G4 - Severe decrease in kidney function <15 ml/min G5 - Kidney failure Reference: [email or web address] Ordering Provider: DARIN GRAHAM Report Released Date/Time: Jun 28, 2023 12:43 PM Reporting Lab: AVILATEDDY FELIPE [address] [address] Performing Lab: AVILA S. [address] [address] [facility] TIBC (V2) IRON BINDING CAPACITY [MASS/VOLU ME] IN SERUM OR PLASMA 383 ug/dL 250 - 450 12/26 Specimen Type: SERUM Comment: eGFR calculated using the 2020 CKD-EPI Creatinine equation: eGFR and Chronic Kidney Disease (CKD) Stages: >90 ml/min G1 - Normal 60-89 ml/min G2 - Mild decrease in kidney function 45-59 ml/min G3A - Mild to moderate decrease in kidney function 30-44 ml/min G3B - Moderate to severe decrease in kidney function 15-29 ml/min G4 - Severe decrease in kidney function <15 ml/min G5 - Kidney failure Reference: [email or web address] Ordering Provider: DARIN GRAHAM Report Released Date/Time: Jun 28, 2023 12:43 PM Reporting Lab: AVILA S. [address] [address] Performing Lab: AVILA FELIPE [facility] [address] [facility] [address] AVILA FELIPE [facility] Vital Signs Combined list of inpatient and outpatient Vital Signs from Department of Defense and Veterans Affairs, ranging from 12 months to all on record, depending upon the facility. Vital Sign Value Date Comments Source SYSTOLIC BLOOD PRESSURE 107 06/27/2024 10:26:57 AVILA FELIPE [facility] DIASTOLIC BLOOD PRESSURE 69 06/27/2024 10:26:57 AVILA FELIPE [facility] PULSE OXIMETRY 97 06/27/2024 10:26:57 S DAT FELIPE [facility] WEIGHT 192 06/27/2024 10:26:57 ADRI FELIPE [facility] BMI 31 kg/m2 06/27/2024 10:26:57 ADRI FELIPE [facility] PAIN 7 06/27/2024 10:26:57 ADRI RushingJamey DESTINEE [facility] HEIGHT 66 06/27/2024 10:26:57 ADRI RushingJamey DESTINEE [facility] TEMPERATURE 97.7 06/27/2024 10:26:57 NANCYMary DARLYN FELIPE [facility] PULSE 87 06/27/2024 10:26:57 ADRI FELIPE [facility] RESPIRATION 18 06/27/2024 10:26:57 NANCYMary DARLYN FELIPE [facility] SYSTOLIC BLOOD PRESSURE 122 12/27/2023 11:11:08 AVILA FELIPE [facility] DIASTOLIC BLOOD PRESSURE 72 12/27/2023 11:11:08 AVILA FELIPE [facility] PULSE OXIMETRY 96 12/27/2023 11:11:08 S DAT FELIPE [facility] WEIGHT 192 12/27/2023 11:11:08 ADRI FELIPE [facility] BMI 31 kg/m2 12/27/2023 11:11:08 ADRI FLEIPE [facility] PAIN 9 12/27/2023 11:11:08 ADRI FELIPE [facility] HEIGHT 66 12/27/2023 11:11:08 ADRI RushingJamey DESTINEE [facility] TEMPERATURE 97.1 12/27/2023 11:11:08 SAMU EL Jamey [facility] PULSE 85 12/27/2023 11:11:08 [facility] More[facility] RESPIRATION 18 12/27/2023 11:11:08 [facility] Encounters Combined list of: 1) Encounters from Department of Veterans Affairs facilities going backup to the last 18 months, not all VA inpatient encounters are included; 2) Encounters from the Department of Defense facilities going backup to 280 months. 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 REJI Chou JOON K 06/28 [facility] UNLISTED PHYSCL MED/[place] [id number] Diagnos is: ICD-10- CM R26.9 Unspeci fied abnorma lities of gait and mobilit y CHANEL ASHTON 07/06 [facility] Outpatient Encounter [id number] GUILLERMINAJEREMIE ROMO 07/19 [facility] [place] [facility] Outpatient Encounter [id number] 07/20 [place] [facility] [place] [place] [facility] [facility] AVILA СергейJamey DESTINEE [facility] INTRM OPH EXAM EST PATIENT [id number] Diagnos is: ICD-10- CM H52.13 jeb Clarke JESSICA L 07/26 AVILATEDDY Rodriguez [facility] [place] [facility] Outpatient Encounter [id number] 08/02 [facility] [place] [facility] [facility] [place] [facility] Outpatient Encounter [id number] 08/04 [facility] [place] [place] [facility] [place] [place] [facility] Outpatient Encounter [id number] 08/07 [facility] [place] [facility] [place] [facility] Outpatient Encounter [id number] 08/09 [facility] [place] [facility] Outpatient Encounter [id number] 08/09 [facility] [place] [facility] CASE MGMT-ORAL HEALTH LIT [id number] Diagnos is: ICD-10- CM K03.6 Deposit s [accret ions] on teeth ANAYELI,NAZIA KATHARINE K 08/10 [facility] [place] [place] [facility] [place] [place] [facility] Outpatient Encounter [id number] 08/11 [facility] [place] [facility] Outpatient Encounter [id number] 08/14 [facility] [place] [facility] HEARING AID REPAIR/MOD IFYING [id number] Diagnos is: ICD-10- CM Z46.1 Encount er for fitting and adjustm ent of hearing aid LUIS DRIVER 08/15 [facility] [place] [facility] En[facility] [id number] 08/16 AVILATEDDY Rodriguez [facility] [place] [facility] Outpatient Encounter [id number] 08/17 [facility] [place] [facility] CARDENASDESTINEE [facility] [place] 1/ [id number] Diagnos is: ICD-10- CM 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, left eye, with macular edema ALISSONALTA 08/18 AVILATEDDY Rodriguez [facility] Outpatient Encounter [id number] 08/18 [facility] Outpatient Encounter [id number] JEREMIE SARMIENTO IE 08/22 [facility] Outpatient Encounter [id number] JEREMIE SARMIENTO IE 08/22 [facility] Outpatient Encounter [id number] 08/23 [facility] Outpatient Encounter [id number] 08/24 [facility] СергейJamey FELIPE [facility] Outpatient Encounter [id number] 08/28 [facility] Edita Rodriguez [facility] Encounter [id number] 08/28 AVILA Rodriguez [facility] Outpatient Encounter [id number] JEREMIE SARMIENTO IE 08/29 [facility] Outpatient Encounter [id number] 09/04 [facility] Outpatient Encounter [id number] 09/11 [facility] Edita FELIPE [facility] CASE MANAGEMENT [id number] MISTI ACUNA EN 09/15 [facility] Edita Rodriguez [facility] Edita DESTINEE [facility] [place] [place] [id number] Diagnos is: ICD-10- CM H43.813 Vitreou s jeb samayoa J ACQUELINE 10/03 AVILATEDDY JORADN [facility] Outpatient Encounter [id number] JEREMIE SARMINETO IE 10/16 [facility] Outpatient Encounter [id number] 10/24 [facility] Edita FELIPE [facility] Outpatient Encounter [id number] 10/25 AVILATEDDY Rodriguez [facility] Kohler DESTINEE [facility] OFFICE O/P NEW [place] 60 MIN [id number] Diagnos is: ICD-10- CM H53.8 Other visual disturb ances POLO QUINTANILLA NICHOLAS R 11/03 AVILATEDDY Rodriguez [facility] FELIPE [facility] INTRM OPH EXAM EST PATIENT [id number] Diagnos is: ICD-10- CM 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, left eye, with macular edema SHIELA GUADALUPE 11/03 AVILATEDDY Rodriguez [facility] FELIPE [facility] PULMONARY STRESS TESTING [id number] Diagnos is: ICD-10- CM Z13.83 Encount er for screeni ng for respira tory disorde r OSCAR WOODALLAPURVAKayla FFFLORESITA 11/03 AVILA Rodriguez [facility] Outpatient Encounter [id number] GUILLERMINAJEREMIE IE 11/13 [facility] Outpatient Encounter [id number] 12/26 [facility] OFFICE O/P EST MOD 30 MIN [id number] Diagnos is: ICD-10- CM 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 [facility] Outpatient Encounter [id number] 12/28 [facility] [place] [facility] Outpatient Encounter [id number] JEREMIE SARMIENTO IE 01/01 [facility] Outpatient Encounter [id number] 01/03 [facility] AVILA FELIPE [facility] Outpatient Encounter [id number] 01/08 AVILA Rodriguez [facility] Outpatient Encounter [id number] 01/12 [facility] INTRM OPH EXAM EST PATIENT [id number] Diagnos is: ICD-10- CM 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, left eye, stable Gianna MUKHERJEEELINE 01/18 AVILA Rodriguez [facility] Outpatient Encounter [id number] 01/18 [facility] AVILA FELIPE [facility] HC PRO PHONE CALL 11-20 MIN [id number] Diagnos is: ICD-10- CM M54.50 Low back pain, unspeci fied JUAN SAENZ RT A 02/06 AVILA SJamey [facility] [place] [place] [facility] Outpatient Encounter [id number] 02/12 [place] [facility] [place] [place] [facility] [place] [facility] Outpatient Encounter [id number] 02/15 [facility] [facility] Edita [facility] Encounter [id number] 02/26 AVILA СергейJamey JORDAN [facility] Outpatient Encounter [id number] JEREMIE SARMIENTO IE 03/15 [facility] Edita [facility] Encounter [id number] 03/23 [facility] СергейJamey THERESANAT [facility] Outpatient Encounter [id number] 03/26 [facility] Outpatient Encounter [id number] 03/28 [facility] Outpatient Encounter [id number] 03/29 [facility] Outpatient Encounter [id number] JEREMIE SARMIENTO IE 04/05 [facility] WHEELCHAIR MNGMENT TRAINING [id number] Diagnos is: ICD-10- CM M54.50 Low back pain, unspeci firashid JUAN SAENZ RT A 04/06 AVILATEDDY JORDAN [facility] СергейJamey DESTINEE [facility] Outpatient Encounter [id number] 04/06 [facility] Edita JORDAN N [facility] Outpatient Encounter [id number] GUILLERMINAJEREMIE IE 04/12 [facility]L [place] [place] [facility] Outpatient Encounter [id number] 05/01 [facility] [place] [facility] Outpatient Encounter [id number] 05/01 [facility] S. [facility] Outpatient Encounter [id number] JUAN SAENZ RT A 05/20 [facility] SJamey [facility] [id number] 06/12 [facility] Outpatient Encounter [id number] 06/13 [facility] SJamey [facility] Outpatient Encounter [id number] JUAN SAENZ RT A 06/20 [facility]ITALJ[facility] Outpatient Encounter [id number] Yonas ALTMAN A 06/22 [facility] SJamey [facility] [place] [place] [facility] Outpatient Encounter [id number] 06/26 [place] [facility] [place] [facility] ORTHOTIC MGMT&TRAIN G 1ST ENC [id number] [id number] Diagnos is: ICD-10- CM E11.40 Type 2 diabete s mellitu s with diabeti c neuropa thy, unsp Yonas ALTMAN 06/27 [facility] OFFICE O/P EST MOD 30 MIN [id number] Diagnos is: ICD-10- CM 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 Yonas GRAHAM 06/27 [facility]CHICHOSANT[facility]ITALJ[facility] Outpatient Encounter [id number] 06/27 [facility]ENTERCHICHOSANT[facility]ITALJ[facility] ELECTROCAR DIOGRAM COMPLETE [id number] Diagnos is: ICD-10- CM 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 manny HERRERA,REJI JOON K 06/27 [facility] [facility] HEARING AID XM&SLCTN BINAURL [id number] Diagnos is: ICD-10- CM H90.3 Sensori neural hearing loss, DEE Trujillo L 07/03 [place] [facility] [place] [facility] Outpatient Encounter [id number] 07/10 [facility] Outpatient Encounter [id number] JEREMIE SARMIENTO IE 07/12 [facility] Outpatient Encounter [id number] JEREMIE SARMIENTO IE 07/19 [facility] Outpatient Encounter [id number] 07/24 [facility] [place] [facility] Outpatient Encounter [id number] 07/26 [facility] [place] [facility] [place] [facility] CONFORMITY EVALUATION [id number] Diagnos is: ICD-10- CM Z46.1 Encount er for fitting and adjustm ent of hearing aid SENIOR,LUIS OLE L 07/31 [place] [facility] [place] [facility] Outpatient Encounter [id number] 08/28 AVILA Rodriguez [facility] AVILA Kohler DESTINEE [facility] Outpatient Encounter [id number] FLORES RICE I 09/[address] [facility] [place] [facility] Outpatient Encounter [id number] 09/05 [place] [facility] [facility] Outpatient Encounter [id number] 09/06 [place] [facility] Outpatient Encounter [id number] JEREMIE SARMIENTO IE 09/12 [facility] Outpatient Encounter [id number] JEREMIE SARMIENTO IE 09/14 [facility] Outpatient Encounter [id number] 09/20 [facility] AVILA CARDENASTTON [facility] Outpatient Encounter [id number] 09/26 AVILATEDDY Rodriguez [facility] Outpatient Encounter [id number] 10/05 [facility] AVILA FELIPE [facility] Outpatient Encounter [id number] 10/[address] [facility] [place] [facility] CASE MGMT-ORAL HEALTH LIT [id number] Diagnos is: ICD-10- CM K03.6 Deposit s [accret ions] on teeth NAZIA GUADALUPE K 10/15 [place] [facility] [place] [facility] [place] [facility] OCCLUSAL ADJUSTMENT [id number] Diagnos is: ICD-10- CM K08.9 Disorde r of teeth and support ing structu res, unspeci fied LINA CARDOSO AM 10/15 [place] [facility] [place] [facility] [place] [facility] Outpatient Encounter [id number] 10/26 [place] [facility] [facility] Outpatient Encounter [id number] 11/04 [facility] Outpatient Encounter [id number] 11/07 [facility] Outpatient Encounter [id number] JEREMIE SARMIENTO IE 11/07 [facility] N[facility] OL DIG ASSMT&MGMT 21+ [id number] Diagnos is: ICD-10- CM I48.91 Unspeci fied atrial fibrill ation CERESIA,TH OMAS M 11/07 [facility] Edita [facility] ASSMT&MGMT NQHP 5-10 [id number] Diagnos is: ICD-10- CM 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 OL DIG ASSMT&MGMT 11-20 [id number] Diagnos is: ICD-10- CM I48.19 Other persist ent atrial fibrill ation GOELJAVIER Michael M 11/09 [facility] Edita [facility] [facility] Outpatient Encounter [id number] 11/13 [place] [facility] [facility] Outpatient Encounter [id number] JEREMIE SARMIENTO IE 11/14 [facility] [facility] RE-EVAL,ES T PT,POSTOP VISIT [id number] Diagnos is: ICD-10- CM M26.56 Non-wor darryl side interfe imtiaz JANAELINA GERMÁN 11/14 [place] [facility] [place] [facility] Outpatient Encounter [id number] 11/19 [facility] Edita FELIPE [facility] Outpatient Encounter [id number] 11/21 [facility] Edita [facility] Outpatient Encounter [id number] 11/22 [facility] Edita [facility] En[facility] [id number] 12/10 [place] [facility] [place] [facility] Outpatient Encounter [id number] 12/10 [facility] Edita FELIPE [facility] SY[place]CH [place] 60 [id number] Diagnos is: ICD-10- CM G47.33 Obstruc tive sleep apnea (adult) (pediat fariha) JOSE A MAGALLON LIPPE A 12/12 [facility] Edita Rodriguez [facility] Edita FELIPE [facility] POS AIRWAY PRESSURE CPAP [id number] Diagnos is: ICD-10- CM G47.33 Obstruc tive sleep apnea (adult) (pediat fariha) JOSE RICHARDS 12/12 [facility] Edita [facility] Social History Combined list of available smoking, tobacco, and other social history from Department of Defense and Veterans Affairs facilities. Social History Type Response Date Comment Source Tobacco smoking status [facility]-TOBACCO NEVER USED 06/28/2023 [facility] History of tobacco use PA-TOBACCO NEVER USED 03/22/2022 AVILA FELIPE [facility] History of tobacco use PA-TOBACCO NEVER USED 12/15/2020 [facility] History of tobacco use PA-TOBACCO NEVER USED 12/11/2019 [facility] History of tobacco use PA-TOBACCO NEVER USED 04/17/2018 [facility] History of tobacco use LIFETIME NON-USER OF TOBACCO 10/27/2017 [facility] History of tobacco use LIFETIME NON-USER OF TOBACCO 06/25/2016 [facility] History of tobacco use LIFETIME NON-USER OF TOBACCO 06/09/2015 [facility] History of tobacco use LIFETIME NON-USER OF TOBACCO 07/24/2014 [facility] History of tobacco use LIFETIME NON-USER OF TOBACCO 07/05/2013 Pt states he's never smoked. [facility] History of tobacco use LIFETIME NON-USER OF TOBACCO 07/21/2012 [facility] History of tobacco use LIFETIME NON-USER OF TOBACCO 03/15/2011 [facility] History of tobacco use LIFETIME NON-USER OF TOBACCO 01/16/2010 [facility] History of tobacco use LIFETIME NON-USER OF TOBACCO 2009 [facility] History of tobacco use LIFETIME NON-USER OF TOBACCO 02/26/2008 [facility] History of tobacco use LIFETIME NON-USER OF TOBACCO 04/14/2007 [facility] History of tobacco use LIFETIME NON-TOBACCO USER 04/01/2004 [facility] History of tobacco use LIFETIME NON-SMOKER 02/22/2003 [facility] Plan of Care List of future care activities from [facility] facilities. Additional future care activities may be listed in the Assessment and Plan section. Date/Time Care Activity Care Activity Detail Facili ty 12/25/2024 AMBULATORY - MEDICINE AMBULATORY - MEDICI NE [facility] Advance Directives List of completed, amended, or rescinded Advance Directives on record at [facility] facilities. An actual copy of the Directive is not included. Date Advance Directive Provider Source 12/24/2022 ADVANCE DIRECTIVE GLADIS MCGOWAN [facility] 11/16/2022 ADVANCE DIRECTIVE DISCUSSION APURVA MCGOWAN [facility] 10/11/2002 ADVANCE DIRECTIVE DISCUSSION [address] [facility]
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
[2024-12-17 13:42] VITALS: BP 116/64; PULSE 87; RESP 14; TEMP 36.6; O2SAT 95; BMI 28.1
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
--- OUTSIDE RECORDS SUMMARY | 2024-12-17 14:19 | XMS_ITS | Clinical Summary ---
Author Organization [facility] Address [address] [place] [id number] Phone Care Team Providers Care Reception Agent Name Role Phone Yessenia Rodriguez MD Primary Care Provider Allergies Active Allergy Reactions Criticality Noted Date Comments Morphine 04/05/2023 Other reaction(s): Drug-induced paranoia or hallucinatory states, Flashbacks Penicillins Nausea And Vomiting 04/05/2023 Ticagrelor Shortness Of Breath High 04/05/2023 Medications atorvastatin (LIPITOR) 80 MG tablet Take 80 mg by mouth. 07/26/2022 Active cyanocobalamin, vitamin B-12, 1000 MCG tablet Take 1,000 mcg by mouth. 06/02/2022 Active docusate (COLACE) 100 mg tablet Take 100 mg by mouth. 06/02/2022 Active empagliflozin (JARDIANCE) 25 mg tablet Take 25 mg by mouth. 06/02/2022 Active ezetimibe (ZETIA) 10 mg tablet Take 10 mg by mouth. 06/02/2022 Active folic acid (FOLVITE) 1 MG tablet Take 1 mg by mouth. 06/02/2022 Active glipiZIDE (GLUCOTROL) 5 MG tablet Take 5 mg by mouth. 06/02/2022 Active metFORMIN (GLUCOPHAGE) 1000 MG tablet Take 1,000 mg by mouth. 07/26/2022 Active metoprolol tartrate (LOPRESSOR) 50 MG tablet Take 25 mg by mouth. 06/02/2022 Active ranolazine (RANEXA) 500 MG 12 hr tablet Take 750 mg by mouth. 06/02/2022 Active isosorbide dinitrate (ISORDIL) 30 MG immediate release tablet Take 30 mg by mouth 4 (four) times a day. Active Active Problems No known active problems Immunizations Immunization Administration Dates Next Due Influenza High-Dose Quadriva lent Preservative Free IM 03/22/2022 Influenza Trivalent w/ Preservative IM 1 ,04/01/2018,04/01/2014,03/13 Pneumococcal polysaccharide PPSV23 04/10/2008 Td (adult),2 Lf Tetanus Toxo id, PF, Adsorbed 04/07/2010 Td, unspecified formulation 04/07/2010, 4 Tdap 02/27/2023 Social History Tobacco Use Types Packs/Day Years Used Date Smoking Tobacco: Never Smokeless Tobacco: Never Tobacco Cessation:Counseling Given: Not Answered Alcohol Use Standard Drinks/Week Comments Not Currently 0 (1 standard drink = 0.6 oz pur e alcohol) Education Answer Date Recorded Are you interested in more education? Not on dacia e 04/05/2023 Are you concerned about learning? Not on file 04/05/2023 No 04/05/2023 No 04/05/2023 Digital Access Answer Date Recorded No 04/05/2023 No 04/05/2023 Reliable internet access at home? Not on file 04/05/2023 Device with a working camera? Not on file Intimate Partner Violence Answer Date R ecorded Are you denied basic needs s uch as food, clothing, or medical care? No 06/22/2023 In the past 12 months have y ou been in a relationship with a person who hurts, threatens, or tries to control you? No 06/22/2023 Are you denied basic needs s uch as food, clothing, or medical care? No 06/22/2023 In the past 12 months have y ou been in a relationship with a person who hurts, threatens, or tries to control you? No 06/22/2023 Sex and Gender Information Value Date Recorded Sex Assigned at Not on file Legal Sex Male 11:16 AM EST Gender Identity Not on file Sexual Orientation Not on file Last Filed Vital Signs Vital Sign Reading Time Taken Comments Blood Pressure 123/88 06/23/2023 12:56 AM EST Pulse 76 06/23/2023 12:56 AM EST Temperature 36.7 C (98.1 F) 06/23/2023 12:56 AM EST Respiratory Rate 15 06/23/2023 12:56 AM EST Oxygen Saturation 96% 06/23/2023 12:56 AM EST Inhaled Oxygen Concentration - - Weight 87.3 kg (192 lb 8 oz) 06/22/2023 9:42 PM EST Height 175.3 cm (5' 9 ) 06/22/2023 9:42 PM EST Body Mass Index 28.43 06/22/2023 9:42 PM EST Plan of Treatment Health Maintenance Due Date Last Done Comments LIPID PANEL 1945 DEPRESSION SCREENING 1957 HEPATITIS C SCREENING 1963 PNEUMOCOCCAL VACCINES (50+ years) (2 of 2 - PCV) 04/10/2009 04/10/2008 RSV VACCINE (1 - 1-dose 75+ series) 01/16/2020 COVID-19 VACCINE (1 - 2023- season) 2024 CREATININE LEVEL 06/22/2024 06/22/2023 Adult Td,Tdap Booster 02/27/2033 02/27/2023 , 04/07/2010, 04/07/2010, Additional history exists ZOSTER VACCINES Completed 09/10/2020, 09/28, 02/28/2012 SMOKING STATUS SCREENING (Once After 26 Yrs) Completed 06/22/2023 HEPATITIS A VACCINES Aged Out No long er eligible based on patient's age to complete this topic HIB VACCINES Aged Out No longer eligi ble based on patient's age to complete this topic MENINGOCOCCAL VACCINES (ACWY) Aged Out No longer eligible based on patient's age to complete this topic MENINGOCOCCAL VACCINES (B) Aged Out N o longer eligible based on patient's age to complete this topic Medical Devices Not on file Procedures Procedure Name Priority Date/Time Associated Diagnosis Comments BASIC METABOLIC PANEL STAT 06/22/2023 10:02 PM EST from Last 3 Months or Most Recently Relevant to Health Maintenance Results * (ABNORMAL) Basic metabolic panel (06/22/2023 10:02 PM EST) SODIUM 140 133 - 146 mmol/L [facility] CHLORIDE 104 96 - 108 mmol/L [facility] POTASSIUM 4.0 3.3 - 5.1 mmol/L [facility] CO2 23 21 - 35 mmol/L [facility] BUN 21(H) 6 - 19 mg/dL [facility] CREATININE 0.90 0.5 - 1.5 mg/dL [facility] GLUCOSE 213(H) 70 - 99 mg/dL [facility] CALCIUM 9.8 8.4 - 10.3 mg/dL [facility] EGFR 87 >59 mL/min/1.7 3m2 [facility] Comment:Estimated glomerular filtration rate calculated using the CKD-EPI refit equation. ANION GAP 17 10 - 20 mmol/L [facility] Blood 06/22/2023 10:0 2 PM EST 06/22/2023 10:08 PM EST us Jeffrey Grayson MD LAB BLOOD ORDERABLES Final Result [facility] [address] [place] [address] from Last 3 Months or Most Recently Relevant to Health Maintenance Insurance MEDICARE PART A & B [facility] MEDICARE SUPPLEMENT MEDICARE PART A & [place] [address] MEDICARE PART A & B MEDICARE SUPPLEMENT MEDICARE PART A & B MEDICARE SUPPLEMENT MEDICARE PART A & B MEDICARE SUPPLEMENT MEDICARE PART A & B Member Subscriber Plan / Payer (Ef fective 2009-Present) Name:Brenton Holguin Member ID:[id number] Relation to Subscriber:Self Name:Brenton Holguin Subscriber ID:[id number] Payer ID:[id number] Group ID:Not on file Type:Medicare Address: [facility] [address] [address] [facility] MEDICARE SUPPLEMENT Care Teams Reception Agent Relationship Specialty Start Date End Date Yessenia Rodriguez MD PCP - General Internal Medicine 04/05/23 Additional Source Comments The information contained in this document represents components of the legal health record. It is not the complete legal health record.[facility]
--- OUTSIDE RECORDS SUMMARY | 2024-12-17 14:19 | XMS_ITS | Patient Health Record ---
Author Organization [facility] Address [address] [place] [address] Care Team Providers Care Fuels Sales Representative Name Role Phone Dean Lebron Primary Care Provider Daniel Devi Unavailable [phone] Allergies Allergen (clinical drug ingredient) Drug/Non Drug Allergy documented on EMR Reaction Allergy Type Onset Date Status Penicillin Unknown Drug Allergy Active morphine Morphine Unknown Drug Allergy Active Shrimp/Shell Fish Unknown Drug Allergy Active Reason For Referral No Information Medications Medication SIG (Take, Route, Frequency, Duration) Notes Start Date End Date Status Aspirin 81 MG 1 tablet Orally Once a day Active Lidocaine Active Docusate Sodium 100 MG 1 capsule as need ed Orally Once a day Active Atorvastatin Calcium 80 MG 1 tablet Orally Once a day Active Extra Depth Orthopedic Shoes (1 Pair) with Customized Heat Molded Multidensity Innersoles (3 Pair) as directed Dx: NIDDM/Polyneuropathy (E11.42), Hammertoe Foot Deformity (M20.41,M20.42), Preulcerative Skin Lesion(s) (L85.1 09/21/2017 Active Gabapentin 300 MG 1 capsule before bed time Orally Once a day Active Polyethylene Glycol Active Fish Oil Active Ammonium Lactate 12 % 1 application to a ffected area Externally Twice a day Active Lancet Device - Acti ve Accu-Chek Juanita Plus - In Vitro Active Isosorbide Mononitrate ER 60 MG 1 tablet in the morning Orally Once a day Active glipiZIDE 5 MG 1 tablet Orally Once a day Active Sennosides 8.6 MG 2 tablets at bedtime as needed Orally Once a day Active Calcium 600 MG 1 tablet with meals Orally Twice a day Active Metoprolol Tartrate 50 MG 1 tablet with food Orally Twice a day Active Ranolazine ER 500 MG 1 tablet Orally Twi ce a day Active metFORMIN HCl 1000 MG 1 tablet with meal s Orally Twice a day Active Sodium Fluoride 1.1 (0.5 F) MG/ML 1 ml Orally Once a day Activ e Immunizations Vaccine Route Administration Date Status Comme nts Influenza Unknown 05/17/2017 Administered Social History Tobacco Use: Social History Observation Description Date Details (start date - stop date) Never Smoker NA - NA Tobacco Use/Smoking Question Answer Notes Are you a: nonsmoker Additional Findings: Tobacco Non-User Current no n-smoker Alcohol Screen Question Answer Notes Did you have a drink containing alcohol in the p ast year? No Points 0 Interpretation Negative Tobacco use other than smoking: Question Answer Notes Are you an other tobacco user? No Problems Problem Type SNOMED Code ICD Code Onset Dates Problem Status W/U Status Risk Notes Problem Type 2 diabetes mellitus with diabetic polyneuropathy (E11.42) Active confirmed Plan Of Treatment Pending Test Test Name Order Date [id number] NAIL, 6 OR MORE 09/21/2017 [id number] SKIN LESIONS, OVER 4 09/22/19 18 Insurance Providers Payer Name Payer Address Payer Phone Subscriber Number Group Number Insured Name Patient Relationship to Insured Coverage Start Date Coverage End Date [facility] [address] [place] [address] [phone] [id number] Brenton Holguin Self - patient is the insured Medical (General) History Medical History History ICD Code Anemia, iron deficiency Atherosclerotic cardiovascular disease ( ASCVD) Carpal tunnel chest pain type II diabetes Dysphagia Hearing loss hip replacement, RT Hyperlipidemia Hypertension Joint implants/screws Obesity osteoarthritis Prostate conditions ptsd Rotator cuff tear Skin disorder Shoulder pain Spinal stenosis Transfusions Venous insufficiency Surgical History Surgery Date(Month/Year) neck fusion Left knee replacement 2001 Right hip replacement 2013 Left shoulder replacement 2016 Hospitalization History Reason Date(Month/Year) shoulder replacement 2017 Infusion of iron 2013
== END 2024-12-17 14:23 | disposition home or self-care (01) ==
LOC: HO.HMCFM 13:32
PROVIDERS: PCP Internal Medicine; Visit Provider Internal Medicine
DX: E11.39 Type 2 diabetes mellitus with other diabetic ophthalmic complication (principal); E85.4 Organ-limited amyloidosis; I43 Cardiomyopathy in diseases classified elsewhere; I10 Essential (primary) hypertension

== ENCOUNTER → 2024-12-17 13:31 | Outpatient (BNVA) | payer MEDICARE, OTHER, SELFPAY | PROVIDERS: PCP Internal Medicine; Visit Provider Internal Medicine | DX: E11.39 Type 2 diabetes mellitus with other diabetic ophthalmic complication (principal); E85.4 Organ-limited amyloidosis; I43 Cardiomyopathy in diseases classified elsewhere; I10 Essential (primary) hypertension; I25.2 Old myocardial infarction; Z85.46 Personal history of malignant neoplasm of prostate; Z79.84 Long term (current) use of oral hypoglycemic drugs; Z79.899 Other long term (current) drug therapy; Z13.31 Encounter for screening for depression | CPT/HCPCS: 96127; 99212 ==

== ENCOUNTER 2025-04-04 10:43 | Outpatient (REF) | payer MEDICARE, OTHER, SELFPAY ==
[2025-04-04 14:11] LABS: MANUAL DIFF FLAG NO
[2025-04-04 14:19] LABS: Hematocrit 41.5 % (42.0-52.0); Hemoglobin 13.0 g/dl (14.0-18.0); Imm Gran Abs Auto 0.04 X10*3/uL (0.00-0.03); Imm Gran Pct Auto 0.7 % (0.0-0.4); Lymphocytes Absolute Auto 1.3 X10*3/uL (1.2-4.9); Mean Corpuscular HGB Conc 31.3 g/dl (31.0-36.0); Mean Corpuscular Hemoglobin 27.5 pg (27.0-33.0); Mean Corpuscular Volume 87.9 fL (80.0-98.0); NRBC Abs Auto 0.000 X10*3/uL (0.0-0.012); NRBC Pct Auto 0.0 /100WBC (0.0-0.2); Platelet Count 228 X10*3/uL (160-400); Red Blood Count 4.72 X10*6/uL (4.60-5.80); White Blood Count 6.1 X10*3/uL (4.8-10.8)
[2025-04-04 14:37] LABS: Alanine Aminotransferase 25 U/L (0-40); Albumin Level 4.6 g/dL (3.5-5.0); Alkaline Phosphatase 57 U/L (39-117); Anion Gap 15 (12-20); Aspartate Amino Transferase 29 U/L (5-37); Blood Urea Nitrogen 26 mg/dL (9-16); Calcium 9.8 mg/dL (8.4-10.2); Carbon Dioxide 24 mmol/L (22-29); Chloride 105 mmol/L (96-108); Cholesterol 154 mg/dL (<200); Estimated Glomerular Filt Rate 55; HDL Cholesterol 46 mg/dL (>40); Potassium 4.0 mmol/L (3.3-5.1); Sodium 140 mmol/L (135-145); Total Protein 7.0 g/dL (6.5-8.0); Triglycerides 138 mg/dL (<150)
[2025-04-04 14:59] LABS: Vitamin B12 942 pg/mL (200-900)
[2025-04-04 15:05] LABS: Erythrocyte Sedimentation Rate 8 MM/HR (0-15)
[2025-04-05 06:28] LABS: Lyme Abs Screen <0.90 index
== END 2025-04-04 10:44 | disposition home or self-care (01) ==
LOC: HO.WFDLDS 10:43
PROVIDERS: PCP Internal Medicine; Visit Provider Physician Assistant Medical
DX: I10 Essential (primary) hypertension (principal); E11.39 Type 2 diabetes mellitus with other diabetic ophthalmic complication; E11.65 Type 2 diabetes mellitus with hyperglycemia; G44.52 New daily persistent headache (NDPH); M50.30 Other cervical disc degeneration, unspecified cervical region; G95.20 Unspecified cord compression; M51.9 Unspecified thoracic, thoracolumbar and lumbosacral intervertebral disc disorder; M51.370 Other intervertebral disc degeneration, lumbosacral region with discogenic back pain only; Z91.89 Other specified personal risk factors, not elsewhere classified
CPT/HCPCS: 36415; 80053; 80061; 82607; 83036; 84443; 85025; 85652; 86617; 86618; 99212

== ENCOUNTER 2025-04-04 10:43 | Outpatient (AMB) | payer MEDICARE, OTHER, SELFPAY ==
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
[2025-04-04 10:59] VITALS: BP 110/68; PULSE 52; RESP 14; TEMP 36.4; O2SAT 94; BMI 27.8
[2025-04-04 11:21] VITALS: PULSE 80
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
--- OUTSIDE RECORDS SUMMARY | 2025-04-04 13:01 | XMS_ITS | Patient Health Record ---
Author Organization [facility] Address [address] [place] [address] Care Team Providers Care Paper Cutter Name Role Phone Dean Lebron Primary Care Provider Daniel Devi Unavailable [phone] Allergies Allergen (clinical drug ingredient) Drug/Non Drug [...] Problem Status W/U Status Risk Notes Problem Polyneuropathy due to type 2 diabetes mellitus (782420697) Type 2 diabetes mellitus with diabetic polyneuropathy (E11.42) Active confirmed Plan Of Treatment Pending Test Test Name Order Date [id number] NAIL, 6 OR MORE 09/21/2017 [id number] SKIN LESIONS, OVER 4 09/22/19 18 Insurance Providers Payer Name Payer Address Payer Phone Subscriber Number Group Number Insured Name Patient Relationship to Insured Coverage Start Date Coverage End Date [address] [address] [phone] [id number] Brenton Holguin Self - patient is the [...]
--- OUTSIDE RECORDS SUMMARY | 2025-04-04 13:01 | XMS_ITS | Clinical Summary ---
Author Organization [facility] Address [address] [place] [phone] Phone Care Team Providers Care Seo Consultant Name Role Phone Yessenia Lerner MD Primary Care Provider Allergies Active Allergy [...] problems Immunizations Immunization Administration Dates Next Due INFLUENZA, SPLIT VIRUS, TRIV ALENT W/ PRESERVATIVE IM 03/22/2022,04/01/2018,04/01/2014,03/13 Influenza High-Dose Quadriva lent Preservative Free IM 03/22/2022 Pneumococcal polysaccharide PPSV23 04/10/2008 Td (adult),2 Lf [...] Comments LIPID PANEL 1945 DEPRESSION SCREENING 1957 PNEUMOCOCCAL VACCINES (50+ years) (2 of 2 - PCV) 04/10/2009 04/10/2008 RSV VACCINE (1 - 1-dose 75+ series) 01/16/2020 CREATININE LEVEL 06/22/2024 06/22/2023 INFLUENZA VACCINE (#1) 2024 , 03/22/2022, 04/01/2018, Additional history exists COVID-19 VACCINE ( - season) 2025 Adult Td,Tdap Booster 02/27/2033 02/27/2023 , 04/07/2010, [...] Date/Time Associated Diagnosis Comments BASIC METABOLIC PANEL (BMP) STAT 06/22/2023 10:02 PM EST from Last 3 Months or Most Recently Relevant to Health Maintenance Results * (ABNORMAL) Basic metabolic panel (06/22/2023 10:02 PM EST) SODIUM 140 133 - 146 mmol/L [facility] CHLORIDE 104 96 - 108 mmol/L [facility] POTASSIUM 4.0 3.3 - 5.1 mmol/L [facility] CO2 23 21 - 35 mmol/L [facility] BUN 21(H) 6 - 19 mg/dL [facility] CREATININE 0.90 0.5 - 1.5 mg/dL [facility] GLUCOSE 213(H) 70 - 99 mg/dL [facility] CALCIUM 9.8 8.4 - 10.3 mg/dL [facility] EGFR 87 >59 mL/min/1.7 3m2 [facility] Comment:Estimated glomerular filtration rate calculated using the CKD-EPI refit equation. ANION GAP 17 10 - 20 mmol/L [facility] Blood 06/22/2023 10:0 2 PM EST 06/22/2023 10:08 PM EST Jeffrey Grayson MD LAB BLOOD BKR ORDERABLES Fi nal Result Performing Organization Address City/State/[facility] Co de Phone Number [address] [phone] from Last 3 Months or Most Recently Relevant to Health Maintenance Insurance MEDICARE PART A & B [facility] MEDICARE SUPPLEMENT MEDICARE PART A & B MEDICARE SUPPLEMENT MEDICARE PART A & B MEDICARE SUPPLEMENT MEDICARE PART A & B [id number] [place] [address] MEDICARE SUPPLEMENT MEDICARE PART A & B [facility] MEDICARE SUPPLEMENT MEDICARE PART A & B [facility] MEDICARE SUPPLEMENT Care Teams Seo Consultant Relationship Specialty Start Date End Date Yessenia Lerner MD PCP - General Internal Medicine 04/05/23 Additional Source Comments The information contained in this document represents components of the legal health record. It is not the complete legal health record.[facility]
== END 2025-04-04 11:39 | disposition home or self-care (01) ==
LOC: HO.HMCFM 10:44
PROVIDERS: PCP Internal Medicine; Visit Provider Physician Assistant Medical
DX: G44.52 New daily persistent headache (NDPH) (principal); M50.30 Other cervical disc degeneration, unspecified cervical region; G95.20 Unspecified cord compression; M51.9 Unspecified thoracic, thoracolumbar and lumbosacral intervertebral disc disorder

== ENCOUNTER 2025-04-22 10:23 | Outpatient (AMB) | payer MEDICARE, OTHER, SELFPAY ==
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
[2025-04-22 10:49] VITALS: BP 106/70; PULSE 88; RESP 14; TEMP 36.6; O2SAT 93; BMI 28.3
--- OUTSIDE RECORDS SUMMARY | 2025-04-22 12:50 | XMS_ITS | Clinical Summary ---
Author Organization [facility] Address [address] [place] [id number] Phone Care Team Providers Care Client Success Director Name Role Phone Yessenia Lerner MD Primary [...] EST) SODIUM 140 133 - 146 mmol/L [facility] CHLORIDE 104 96 - 108 mmol/L [facility] POTASSIUM 4.0 3.3 - 5.1 mmol/L [facility] CO2 23 21 - 35 mmol/L [facility] BUN 21(H) 6 - 19 mg/dL [facility] CREATININE 0.90 0.5 - 1.5 mg/dL [facility] GLUCOSE 213(H) 70 - 99 mg/dL [facility] CALCIUM 9.8 8.4 - 10.3 mg/dL [facility] EGFR 87 >59 mL/min/1.7 3m2 [facility] Comment:Estimated glomerular filtration rate calculated using the CKD-EPI refit equation. ANION GAP 17 10 - 20 mmol/L [facility] Blood 06/22/2023 10:0 2 PM EST 06/22/2023 10:08 PM EST Jeffrey Grayson MD LAB BLOOD BKR ORDERABLES Fi nal Result Performing Organization Address City/State/[facility] Co de Phone Number [address] [phone] from Last 3 Months or Most Recently Relevant to Health Maintenance Insurance MEDICARE PART A & B [facility] MEDICARE SUPPLEMENT MEDICARE PART A & B MEDICARE SUPPLEMENT MEDICARE PART A & B MEDICARE SUPPLEMENT MEDICARE PART A & B [id number] [place] [id number] MEDICARE SUPPLEMENT MEDICARE PART A & B [facility] MEDICARE SUPPLEMENT MEDICARE PART A & B [facility] MEDICARE SUPPLEMENT Care Teams Client Success Director Relationship Specialty Start Date End Date Yessenia Lerner MD PCP - General Internal Medicine 04/05/23 Additional Source Comments The information contained in this document represents components of the legal health record. It is not the complete legal health record.[facility]
--- OUTSIDE RECORDS SUMMARY | 2025-04-22 12:50 | XMS_ITS | Clinical Summary ---
Author Organization [facility] Address [address] [place] [address] Phone Care Team Providers Care Payment Manager Name Role Phone Yonis Villa MD Primary [...] Date Obesity (BMI 30-39.9) 05/01/2024 Wild-type transthyretin-rela kalra (ATTR) amyloidosis ([facility] V24, [facility] V28) 12/17/2022 LVH (left ventricular hypertrophy) 10/12/2022 Chest pain 10/01/2022 Spinal stenosis, lumbar 04/24/2020 Overview (05/01/2024): L2-3; on imaging at the [facility]. Type 2 diabetes mellitus wit h peripheral vascular disease ([facility] V24, [facility] V28) 11/08/2018 PAD (peripheral artery disease) ([facility] V24) Memory changes 04/01/2014 Carpal tunnel syndrome 10/25/2012 Overview (05/01/2024): Carpal tunnel present--worse on left from EMG report on 10/09/2006, by Dr. Anderson. Other diseases of larynx 04/26/2012 Coronary artery disease of n ative artery of rampart heart with stable angina pectoris ([facility] V24) 04/29/2011 Overview (05/01/2024): Cath 04/11 -medical RX Iron deficiency anemia secondary to blood loss ( chronic) 04/16/2011 Overview (05/01/2024): Colonoscopy Mar, 2011: [facility], solitary 2 mm transverse colon hyperplastic polyp. EGD normal 04/16/2011. 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 ([facility] V24, [facility] V28) 02/17/2006 Encounters Date Type Department Care Team Description 04/08/2025 Telephone Neurosurgery [facility] [address] [place] [address] Chloe Vaughan MA from Last 3 Months Immunizations Immunization Administration Dates Next Due Influenza [...] PROCEDURE: HISTORICAL COLONOSCOPY; COMMENT: polyps removed at [place], [place]: hyperplastic polyp; repeat in 10 yrs Medical History Medical History Date Comments Pure hypercholesterolemia DX:Pur e hypercholesterolemia Essential hypertension, benign D X:Essential hypertension, benign Type 2 diabetes mellitus wit h peripheral vascular disease (CMS/HCC V24, CMS/HCC V28) 11/08/2018 DX:Type 2 diabetes mellitus with [...] chronic blood loss; COMMENT: Colonoscopy Mar, 2011: [facility], solitary 2 mm transverse colon hyperplastic polyp. EGD normal 04/16/2011. Memory changes 04/01/2014 DX:Memory change s PAD (peripheral artery disea se) ([facility] V24) 06/15/2018 DX:PAD (peripheral artery di sease) (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 V24, [facility] V28) 02/17/2006 DX:Type 2 diabetes mellitus [...] Care Team (Late st Contact Info) Description 04/30/2025 2:30 PM EST Office Visit [facility] [address] [facility] [address] [place] [address] Penelope Archer MD [address] [place], [place] [id number] 08/29/2025 11:30 AM EDT Office Visit Vascular Surgery - [place] [address] [place] [address] Belinda Hyde MD [address] [place] [phone] Health Maintenance Due Date Last Done [...] * Annual BMP Blood Test (08/16/2022) Pathologist [facility] Annual BMP Blood Test Abstracted Historical Provider HEALTH MAINTENANCE Final Result * Urine Albumin Creatinine Ratio (10/06/2018) Pathologist [facility] Urine Albumin Creatinine Ratio Abstracted Historical Provider HEALTH MAINTENANCE Final Result * (ABNORMAL) Hemoglobin A1c (10/06/2018) Pathologist [facility] Hemoglobin A1C 8.6(A) <=6.5 % Blood Venous blood specimen / Unknown Historical Provider LAB BLOOD ORDERABLES Mili l Result * (ABNORMAL) Lipid panel (10/06/2018) LDL/HDL Ratio 4 0 - 4 Triglycerides 213(A) 0 - 150 mg/dL Cholesterol 167 0 - 200 mg/dL HDL 39(A) >=40 mg/dL LDL Cholesterol 86 0 - 100 mg/dL Blood Venous blood specimen / Unknown Historical Provider LAB BLOOD ORDERABLES Mili l Result from Last 3 Months or Most Recently Relevant to Health Maintenance Insurance [facility] [place] [id number] MEDICARE [facility] Care Teams Payment Manager Relationship Specialty Start Date End Date Yonis Villa MD [address] [place] [address] PCP - General Internal Medicine 11/05/21
== END 2025-04-22 11:19 | disposition home or self-care (01) ==
LOC: HO.HMCFM 10:24
PROVIDERS: PCP Internal Medicine; Visit Provider Internal Medicine
DX: E11.39 Type 2 diabetes mellitus with other diabetic ophthalmic complication (principal); E85.4 Organ-limited amyloidosis; I43 Cardiomyopathy in diseases classified elsewhere; G95.20 Unspecified cord compression; M50.30 Other cervical disc degeneration, unspecified cervical region; M51.379 Other intervertebral disc degeneration, lumbosacral region without mention of lumbar back pain or lower extremity pain

== ENCOUNTER → 2025-04-22 10:23 | Outpatient (BNVA) | payer MEDICARE, OTHER, SELFPAY | PROVIDERS: PCP Internal Medicine; Visit Provider Internal Medicine | DX: E11.39 Type 2 diabetes mellitus with other diabetic ophthalmic complication (principal); G95.20 Unspecified cord compression; M51.379 Other intervertebral disc degeneration, lumbosacral region without mention of lumbar back pain or lower extremity pain; G89.29 Other chronic pain; Z79.899 Other long term (current) drug therapy | CPT/HCPCS: 99212 ==